=== PATIENT | male | born 1955 | race American Indian/Alaskan Native ===

== ENCOUNTER 2017-01-22 18:39 | Emergency (ER) | payer OTHER ==
[2017-01-22 18:55] VITALS: BP 150/83
[2017-01-22 19:39] LABS: Basophils % (Auto) 1.5 % (0.0-1.8); Eosinophils % (Auto) 5.9 % (0.0-4.3); Hemoglobin 7.7 gm/dl (11.8-15.2); Mean Corpuscular HGB Conc 31 % (32-34); Mean Corpuscular Hemoglobin 25 pg (28-32); Mean Corpuscular Volume 80 fl (84-94); Platelet Count 263 K/mm3 (140-440); Red Blood Count 3.13 M/mm3 (3.65-5.03); Red Cell Distribution Width 17.2 % (13.2-15.2); White Blood Count 7.4 K/mm3 (4.5-11.0)
[2017-01-22 19:47] LABS: Albumin 3.3 g/dL (3.9-5); Albumin/Globulin Ratio 0.7 %; BUN/Creatinine Ratio 5.6; Bilirubin,Total 0.4 mg/dL (0.1-1.2); Calcium 8.4 mg/dL (8.4-10.2); Chloride 99.7 mmol/L (98-107); Potassium 4.5 mmol/L (3.6-5.0); Total Protein 7.9 g/dL (6.3-8.2)
[2017-01-22 20:28] LABS: Bilirubin,Urine NEG (Negative); Blood,Urine NEG (Negative); Ketones,Urine NEG (Negative); Leukocyte Esterase,Urine NEG (Negative); Mucus,Urine FEW /HPF; Nitrite,Urine NEG (Negative); Urobilinogen,Urine < 2.0 mg/dL (<2.0); WBC,Urine < 1.0 /HPF (0.0-6.0)
[2017-01-22 20:30] LABS: Protein,Urine >500 mg/dL (Negative)
--- NOTE | 2017-01-24 15:18 | ED Elopement Review ---
ED Pt Elopement review - Results review Lab results: Laboratory Tests 01/22/17 01/22/17 01/22/17 19:07 19:07 Unknown WBC 7.4 RBC 3.13 L Hgb 7.7 L Hct 25.0 L MCV 80 L MCH 25 L MCHC 31 L RDW 17.2 H Plt Count 263 Lymph % (Auto) 11.3 L [place] % (Auto) 6.6 Eos % (Auto) 5.9 H Baso % (Auto) 1.5 Lymph # 0.8 L [place] # 0.5 Eos # 0.4 Baso # 0.1 Seg Neutrophils % 74.7 H Seg Neutrophils # 5.5 Sodium 140 Potassium 4.5 Chloride 99.7 Carbon Dioxide 26 Anion Gap 19 BUN 14 Creatinine 2.5 H Estimated GFR 32 BUN/Creatinine Ratio 5.60 Glucose 176 H Calcium 8.4 Total Bilirubin 0.4 AST 24 ALT 20 Alkaline Phosphatase 184 H Total Protein 7.9 Albumin 3.3 L Albumin/Globulin Ratio 0.7 Lipase 66 H Urine Color Yellow Urine Turbidity Clear Urine pH 9.0 H Ur Specific [place] 1.012 Urine Protein >500 Urine Glucose (UA) 50 Urine Ketones Neg Urine Blood Neg Urine Nitrite Neg Urine Bilirubin Neg Urine Urobilinogen < 2.0 Ur Leukocyte Esterase Neg Urine WBC (Auto) < 1.0 Urine RBC (Auto) 8.0 U Epithel Cells (Auto) < 1.0 Urine Mucus Few - Call Back decision Pt Call Back Decision: No action required
== END 2017-01-23 01:00 | disposition left against medical advice (07) ==
LOC: ED 18:39
DX: R10.9 Unspecified abdominal pain (principal); M54.9 Dorsalgia, unspecified; I50.9 Heart failure, unspecified; E11.9 Type 2 diabetes mellitus without complications; I10 Essential (primary) hypertension; D64.9 Anemia, unspecified; F17.200 Nicotine dependence, unspecified, uncomplicated; Z88.0 Allergy status to penicillin
CPT/HCPCS: 36415; 80053; 81001; 83690; 85025

== ENCOUNTER 2017-01-23 18:50 | Emergency (ER) | payer OTHER ==
[2017-01-23 20:08] VITALS: BP 172/107
[2017-01-23] MEDS ORDERED: ZOFRAN ODT PO ONE (20:52)
[2017-01-23] MEDS ORDERED: VALIUM IM ONE (20:52)
[2017-01-23] MEDS ORDERED: MORPHINE IM ONE (20:52)
--- NOTE | 2017-01-23 21:29 | Emergency Department Report ---
HPI - General Chief Complaint: Chest Pain Time Seen by Provider: 01/23/17 19:53 - HPI HPI: The patient is a 61-year-old male presents for evaluation of chest pain. The patient reports 1 day of right-sided chest pain, 10/10 in severity, sharp in quality, exacerbated with movement of the upper chest wall or right arm, concentrating as site of dialysis catheter placement to chest wall. The patient denies fever, trauma to the chest wall, dyspnea, cough, hemoptysis, palpitations , dizziness, syncope, unilateral leg swelling, calf muscle pain. Patient also denies cocaine or other stimulant use. ED Past Medical Hx - Past Medical History Previous Medical History?: Yes Hx Hypertension: Yes Hx Congestive Heart Failure: Yes Hx Diabetes: Yes Hx Deep Vein Thrombosis: Yes Hx Renal Disease: (CKD) Hx Seizures: No Hx Asthma: No Hx COPD: No Hx HIV: No Additional medical history: osteomyelitis, ANEMIA. Diabetic Neuropathy.Renal failure, Dialysis . - Surgical History Past Surgical History?: Yes Hx Cholecystectomy: Yes Additional Surgical History: R-BKA- nov 2015. Port for dialysis implanted in left chest 1 month back - Social History Smoking Status: Current Every Day Smoker Substance Use Type: None - Medications Home Medications: Home Medications Medication Instructions Recorded Confirmed Last Taken Type glipiZIDE [Glucotrol] 5 mg PO QDAY #30 tablet 08/31/16 12/23/16 Unknown Rx Insulin Glulisine [Apidra] 0 units SUB-Q ACHS units 10/19/16 12/23/16 Unknown Rx Aspirin [Aspirin BABY CHEW TAB] 81 mg PO QDAY #30 tab.chew 01/02/17 Unknown Rx Carvedilol [Coreg] 25 mg PO BID #60 tablet 01/02/17 Unknown Rx Epoetin Eddie 10,000 Unit [Procrit] 10,000 unit IV YAEL PRN #30 vial 01/02/17 Unknown Rx Furosemide [Lasix TAB] 40 mg PO 0600,1800 #60 tablet 01/02/17 Unknown Rx Gabapentin [Neurontin] 100 mg PO Q8HR #30 capsule 01/02/17 Unknown Rx amLODIPine [Norvasc] 10 mg PO QDAY #30 tablet 01/02/17 Unknown Rx cloNIDine [Catapres] 0.1 mg PO BID #60 tablet 01/02/17 Unknown Rx cloNIDine [Catapres] 0.2 mg PO BID #60 tablet 01/02/17 Unknown Rx hydrALAZINE [Apresoline TAB] 50 mg PO Q8HR #90 tablet 01/02/17 01/23/17 Unknown Rx oxyCODONE /ACETAMINOPHEN [Percocet 2 tab PO Q4H PRN #20 tablet 01/02/17 Unknown Rx 5/325 mg] HYDROcodone/APAP 7.5-325 [[place] 1 each PO Q8HR PRN #10 tablet 01/23/17 Unknown Rx 7.5-325 mg TAB] ED Review of Systems ROS: Stated complaint: CHEST PAIN Other details as noted in HPI Constitutional: denies: fever ENT: denies: throat or neck pain Respiratory: denies: cough, shortness of breath Cardiovascular: reports chest pain Endocrine: denies unexplained weight loss or gain Gastrointestinal: denies: abdominal pain, nausea Genitourinary: denies: dysuria Musculoskeletal: denies: leg swelling Skin: denies: rash Neurological: denies: headache Hematological/Lymphatic: denies: easy bleeding or easy bruising Psych: denies sadness or hopelessness Physical Exam - Physical Exam Vital Signs: Vital Signs 01/23/17 01/23/17 01/23/17 19:29 19:30 19:39 Temperature 99.5 F Pulse Rate 109 H 110 H 111 H Respiratory 13 14 Rate Blood Pressure 159/97 159/97 Blood Pressure [Right] O2 Sat by Pulse 99 97 98 Oximetry 01/23/17 01/23/17 01/23/17 19:41 19:51 19:52 Temperature 99.5 F Pulse Rate 111 H 112 H 111 H Respiratory 21 16 13 Rate Blood Pressure 159/97 157/102 Blood Pressure 159/97 [Right] O2 Sat by Pulse 99 100 98 Oximetry 01/23/17 01/23/17 20:00 20:02 Temperature Pulse Rate 113 H Respiratory 15 13 Rate Blood Pressure 172/107 Blood Pressure [Right] O2 Sat by Pulse 99 98 Oximetry Physical Exam: General: well-nourished, well-developed, no acute distress Head: Normocephalic, atraumatic Eyes: normal sclera ENT: Mucous membranes are pink and moist Neck: trachea midline, neck supple, No neck stiffness, no cervical adenopathy Respiratory: Breath sounds equal bilaterally, no wheezing, rales, or rhonchi Cardio: S1 and S2 present, no murmurs, rubs, gallops, capillary refill is brisk Abdomen: Normoactive bowel sounds, soft abdomen, no rigidity, no guarding or rebound tenderness Chest WALL/Back: right upper chest wall tenderness to palpation present surrounding dialysis catheter insertion site, no surrounding erythema, warmth, or fluctuance, no crepitus, no purulent discharge or drainage Musc: No pitting edema Skin: No rash Neuro: no facial drooping, normal speech Psych: Normal affect ED Course Vital Signs 01/23/17 01/23/17 01/23/17 19:29 19:30 19:39 Temperature 99.5 F Pulse Rate 109 H 110 H 111 H Respiratory 13 14 Rate Blood Pressure 159/97 159/97 Blood Pressure [Right] O2 Sat by Pulse 99 97 98 Oximetry 01/23/17 01/23/17 01/23/17 19:41 19:51 19:52 Temperature 99.5 F Pulse Rate 111 H 112 H 111 H Respiratory 21 16 13 Rate Blood Pressure 159/97 157/102 Blood Pressure 159/97 [Right] O2 Sat by Pulse 99 100 98 Oximetry 01/23/17 01/23/17 20:00 20:02 Temperature Pulse Rate 113 H Respiratory 15 13 Rate Blood Pressure 172/107 Blood Pressure [Right] O2 Sat by Pulse 99 98 Oximetry ED Medical Decision Making - Medical Decision Making The patient was seen and examined by myself. The patient is placed on a engine monitor and continuous pulse ox. On initial evaluation, the patient was found to be in no distress. Evaluation orders were placed. The patient is given IM morphine for his pain. EKG is unremarkable. X-ray of the chest unremarkable. The patient was reevaluated and reported that their symptoms were markedly improved. The patient is stable for discharge with outpatient follow- up. The patient is given follow-up and return instructions. The patient expressed understanding and agreed with the plan. The patient is discharged in stable condition. Critical care attestation.: If time is entered above; I have spent that time in minutes in the direct care of this critically ill patient, excluding procedure time. ED Disposition Clinical Impression: Acute chest wall pain Disposition: DISCHARGED TO HOME OR SELFCARE Is pt being admited?: No Does the pt Need Aspirin: No Condition: Stable Instructions: Chest Pain (ED) Prescriptions: HYDROcodone/APAP 7.5-325 [[place] 7.5-325 mg TAB] 1 each PO Q8HR PRN #10 tablet PRN Reason: Pain Referrals: PRIMARY CARE, [Primary Care Provider] - 3-5 Days Time of Disposition: 21:13
--- NOTE | 2017-01-24 08:54 | XRay Report ---
AP CHEST : 01/23/17 20:44 CLINICAL: Chest pain. COMPARISON:12/23/16 FINDINGS: Massive cardiomegaly with slight improvement compared to the prior exam. The lung bases have cleared. The lungs are clear except for mild bibasal reticular interstitial opacities. Central vascular congestion. A right Vas-Cath has been inserted and the tip is in the right atrium. The lungs are normally expanded and clear. The bones and soft tissues are unremarkable. IMPRESSION: CHF with improvement since the prior exam. Mild bibasal interstitial pulmonary edema.
== END 2017-01-23 21:13 | disposition home or self-care (01) ==
LOC: ED 18:50
DX: R07.89 Other chest pain (principal); E11.22 Type 2 diabetes mellitus with diabetic chronic kidney disease; I12.9 Hypertensive chronic kidney disease with stage 1 through stage 4 chronic kidney disease, or unspecified chronic kidney disease; N18.9 Chronic kidney disease, unspecified; I82.409 Acute embolism and thrombosis of unspecified deep veins of unspecified lower extremity; Z79.4 Long term (current) use of insulin; I50.9 Heart failure, unspecified; E11.40 Type 2 diabetes mellitus with diabetic neuropathy, unspecified; D64.9 Anemia, unspecified; Z79.82 Long term (current) use of aspirin; F17.200 Nicotine dependence, unspecified, uncomplicated; Z99.2 Dependence on renal dialysis; Z98.890 Other specified postprocedural states
CPT/HCPCS: 71010; 93005; 93010; 96372; 99284; J2270; J3360; Q0162

== ENCOUNTER 2017-08-10 18:08 | Inpatient (IN) | payer MEDICARE ==
[2017-08-10 18:27] LABS: Basophils % (Auto) 1.3 % (0.0-1.8); Eosinophils % (Auto) 0.4 % (0.0-4.3); Mean Corpuscular HGB Conc 31 % (32-34); Mean Corpuscular Volume 75 fl (84-94); Platelet Count 313 K/mm3 (140-440); Red Blood Count 1.21 M/mm3 (3.65-5.03); White Blood Count 6.5 K/mm3 (4.5-11.0)
[2017-08-10 18:34] LABS: Hemoglobin 2.8 gm/dl (11.8-15.2)
[2017-08-10 18:35] LABS: Hematocrit 9.1 % (35.5-45.6); Mean Corpuscular Hemoglobin 23 pg (28-32)
[2017-08-10 18:39] LABS: INR 1.12 (0.87-1.13)
[2017-08-10 18:47] LABS: Albumin 2.5 g/dL (3.9-5); Albumin/Globulin Ratio 0.8 %; BUN/Creatinine Ratio 9.13; Bilirubin,Total 0.3 mg/dL (0.1-1.2); Calcium 7.9 mg/dL (8.4-10.2); Chloride 106.5 mmol/L (98-107); Potassium 4.4 mmol/L (3.6-5.0); Total Protein 5.6 g/dL (6.3-8.2)
[2017-08-10] MEDS ORDERED: NACL 0.9% 500 ML 500 ML IV ONE (19:05)
[2017-08-10] MEDS ORDERED: DDAVP IV ONE ×2 (19:06→20:00)
--- NOTE | 2017-08-10 19:10 | Emergency Department Report ---
ED General Adult HPI - General Chief complaint: Altered Mental Status Stated complaint: STROKE Time Seen by Provider: 08/10/17 18:49 Source: patient, EMS (ems notes not available at time of chart dictation), RN notes reviewed, old records reviewed Mode of arrival: Stretcher Limitations: Physical Limitation - History of Present Illness Initial comments: This is a 62-year-old male, I have evaluated the patient in the past. Patient is brought to the hospital by EMS for altered mental status. Patient has a past medical history of right lower extremity below-knee amputation, anemia, diabetes, renal insufficiency, end-stage renal disease on dialysis. He reports his private mangle tender is Dr. Ata Hauser. Patient reports that he called EMS because he was feeling weak, and really malaise. This has been constant. Has no exacerbating or relieving factors. He does endorse private red blood per rectum. The patient indicates no recent colonoscopy, and he thinks that he does not take any blood thinning medication but he is not certain. As per verbal report from EMS, patient is altered, but for uncertain duration of time, and they do not know onset of symptoms. When I speak to the patient, he is not altered, he denies extremity weakness, extremity numbness, slurred speech, hematemesis, irritative and obstructive urinary symptoms. -: Gradual Consistency: constant Improves with: none Worsens with: none Associated Symptoms: malaise, weakness - Related Data Home Medications Medication Instructions Recorded Confirmed Last Taken Lisinopril 10 mg PO QDAY 04/03/17 08/10/17 07/22/17 Furosemide [Lasix TAB] 40 mg PO BID 07/23/17 08/10/17 07/22/17 Glimepiride [Amaryl] 4 mg PO DAILY 07/23/17 08/10/17 07/22/17 Morphine Sulfate [Morphine Sulfate 15 mg PO Q12H 08/10/17 08/10/17 Unknown ER] Previous Rx's Medication Instructions Recorded Last Taken Type Gabapentin [Neurontin] 300 mg PO Q8HR #90 capsule 04/11/17 07/22/17 Rx amLODIPine [Norvasc] 10 mg PO QDAY #30 tablet 04/11/17 07/22/17 Rx Allergies Allergy/AdvReac Type Severity Reaction Status Date / Time Penicillins Allergy Itching Verified 08/10/17 18:43 heparin AdvReac THINS BLOOD Verified 08/10/17 18:43 ED Review of Systems ROS: Stated complaint: STROKE Other details as noted in HPI Constitutional: malaise Eyes: denies: eye discharge Respiratory: denies: cough Cardiovascular: denies: chest pain Gastrointestinal: hematochezia. denies: nausea Genitourinary: denies: dysuria Skin: denies: lesions Neurological: weakness Psychiatric: as per HPI ED Past Medical Hx - Past Medical History Previous Medical History?: Yes Hx Hypertension: Yes Hx Heart Attack/AMI: No Hx Congestive Heart Failure: No Hx Diabetes: Yes Hx Deep Vein Thrombosis: No Hx Pulmonary Embolism: No Hx Liver Disease: No Hx Renal Disease: Yes Hx Sickle Cell Disease: No Hx Arthritis: No Hx Seizures: No Hx Kidney Stones: No Hx Asthma: No Hx COPD: No Hx Tuberculosis: No Hx HIV: No Additional medical history: osteomyelitis, ANEMIA. Diabetic Neuropathy.Renal failure, Dialysis . - Surgical History Past Surgical History?: Yes Hx Coronary Stent: No Hx Open Heart Surgery: No Hx Pacemaker: No Hx Internal Defibrillator: No Hx Cholecystectomy: No Hx Appendectomy: No Hx Breast Surgery: No Additional Surgical History: R-BKA- nov 2015. Port for dialysis implanted in left chest 1 month back, dialysis port in RT chest - Social History Smoking Status: Current Every Day Smoker Substance Use Type: None - Medications Home Medications: Home Medications Medication Instructions Recorded Confirmed Last Taken Type Lisinopril 10 mg PO QDAY 04/03/17 08/10/17 07/22/17 History Gabapentin [Neurontin] 300 mg PO Q8HR #90 capsule 04/11/17 08/10/17 07/22/17 Rx amLODIPine [Norvasc] 10 mg PO QDAY #30 tablet 04/11/17 08/10/17 07/22/17 Rx Furosemide [Lasix TAB] 40 mg PO BID 07/23/17 08/10/17 07/22/17 History Glimepiride [Amaryl] 4 mg PO DAILY 07/23/17 08/10/17 07/22/17 History Morphine Sulfate [Morphine Sulfate 15 mg PO Q12H 08/10/17 08/10/17 Unknown History ER] ED Physical Exam - General Limitations: Physical Limitation General appearance: alert, in no apparent distress - Head Head exam: Present: atraumatic, normocephalic - Eye Eye exam: Present: normal appearance, EOMI, other (bilateral conjunctiva are pale). Absent: nystagmus - ENT ENT exam: Present: normal exam, normal orophraynx, mucous membranes dry, normal external ear exam - Neck Neck exam: Present: normal inspection - Respiratory Respiratory exam: Present: normal lung sounds bilaterally, other (there is a right-sided dialysis access catheter, with no redness, pus or streaking). Absent: respiratory distress, wheezes, rales, rhonchi, stridor, chest wall tenderness - Cardiovascular Cardiovascular Exam: Present: regular rate, normal rhythm, normal heart sounds. Absent: bradycardia, tachycardia, irregular rhythm, systolic murmur, diastolic murmur, rubs, gallop - GI/Abdominal GI/Abdominal exam: Present: soft, normal bowel sounds. Absent: distended, tenderness, guarding, rebound, rigid, pulsatile mass - Rectal Rectal exam: Present: normal inspection, heme (+) stool, bloody stool, other ( bloody stool, strongly guaiac positive) - Extremities Exam Extremities exam: Present: normal inspection, pedal edema, other (right lower extremity status post below-knee MB dictation) - Back Exam Back exam: Present: normal inspection, full ROM. Absent: paraspinal tenderness - Neurological Exam Neurological exam: Present: alert, oriented X3, other (Extraocular movements intact. Tongue midline. No facial droop. Facial sensation intact to light touch in the V1, V2, V3 distribution bilaterally. 5 and 5 strength in 4 extremities.. Sensation is intact to light touch in 4 extremities.). Absent: motor sensory deficit - Psychiatric Psychiatric exam: Present: normal affect, normal mood - Skin Skin exam: Present: warm, dry, intact, normal color. Absent: rash ED Course Vital Signs 08/10/17 08/10/17 08/10/17 18:30 18:44 20:13 Temperature 99.4 F 99.1 F Pulse Rate 98 H 105 H Respiratory 14 14 20 Rate Blood Pressure 139/54 Blood Pressure 129/63 [Right] O2 Sat by Pulse 100 100 100 Oximetry 08/10/17 08/10/17 08/10/17 21:48 22:03 22:06 Temperature 99.3 F 99.3 F 99.3 F Pulse Rate 110 H 111 H 112 H Respiratory 20 20 20 Rate Blood Pressure 130/65 155/70 156/73 Blood Pressure [Right] O2 Sat by Pulse 100 99 100 Oximetry 08/10/17 08/10/17 22:20 22:50 Temperature 99.3 F 99.3 F Pulse Rate 108 H 112 H Respiratory 20 20 Rate Blood Pressure 144/62 149/69 Blood Pressure [Right] O2 Sat by Pulse 99 100 Oximetry - Reevaluation(s) Reevaluation #1: 08/10/17 20:58 As per discussion with blood bank, washed red blood cells will not be available until Saturday. Given current physical exam findings I believe the patient emergently requires packed red blood cell transfusion. This is very discussed with his mangle tender, Dr. Hauser, who is agreeable to the red blood cells that are available at this facility, patient can be dialyzed tomorrow. - Consultations Consultation #1: 08/10/17 19:36 Case is discussed with gastroenterology, Dr. Osborne, he agrees with plan of care , and will see the patient in consultation. Consultation #2: 08/10/17 19:48 Case discussed with critical care physician, Dr. Giraldo, he agrees with placement into the intensive care unit. Consultation #3: 08/10/17 19:58 case d/w Dr Hauser, he agrees with plan called blood bank to request washed rbc as per Dr Del Rio recommendation ED Medical Decision Making - Lab Data Result diagrams: 08/10/17 18:13 08/10/17 18:13 Vital Signs (72 hours) 08/10/17 08/10/17 18:30 18:44 Temperature 99.4 F Pulse Rate 98 H Respiratory 14 14 Rate Blood Pressure 139/54 O2 Sat by Pulse 100 100 Oximetry Laboratory Last Values WBC 6.5 K/mm3 (4.5-11.0) 08/10/17 18:13 RBC 1.21 M/mm3 (3.65-5.03) L 08/10/17 18:13 Hgb 2.8 gm/dl (11.8-15.2) L* 08/10/17 18:13 Hct 9.1 % (35.5-45.6) L* 08/10/17 18:13 MCV 75 fl (84-94) L 08/10/17 18:13 MCH 23 pg (28-32) L 08/10/17 18:13 MCHC 31 % (32-34) L 08/10/17 18:13 RDW 19.0 % (13.2-15.2) H 08/10/17 18:13 Plt Count 313 K/mm3 (140-440) 08/10/17 18:13 Lymph % (Auto) 9.6 % (13.4-35.0) L 08/10/17 18:13 [place] % (Auto) 5.2 % (0.0-7.3) 08/10/17 18:13 Eos % (Auto) 0.4 % (0.0-4.3) 08/10/17 18:13 Baso % (Auto) 1.3 % (0.0-1.8) 08/10/17 18:13 Lymph # 0.6 K/mm3 (1.2-5.4) L 08/10/17 18:13 [place] # 0.3 K/mm3 (0.0-0.8) 08/10/17 18:13 Eos # 0.0 K/mm3 (0.0-0.4) 08/10/17 18:13 Baso # 0.1 K/mm3 (0.0-0.1) 08/10/17 18:13 Seg Neutrophils % 83.5 % (40.0-70.0) H 08/10/17 18:13 Seg Neutrophils # 5.5 K/mm3 (1.8-7.7) 08/10/17 18:13 PT 15.0 Sec. (12.2-14.9) H 08/10/17 18:13 INR 1.12 (0.87-1.13) 08/10/17 18:13 Sodium 142 mmol/L (137-145) 08/10/17 18:13 Potassium 4.4 mmol/L (3.6-5.0) 08/10/17 18:13 Chloride 106.5 mmol/L (98-107) 08/10/17 18:13 Carbon Dioxide 25 mmol/L (22-30) 08/10/17 18:13 Anion Gap 15 mmol/L 08/10/17 18:13 BUN 21 mg/dL (9-20) H 08/10/17 18:13 Creatinine 2.3 mg/dL (0.8-1.5) H 09/16/17 18:13 Estimated GFR 29 ml/min 08/10/17 18:13 BUN/Creatinine Ratio 9.13 % 08/10/17 18:13 Glucose 91 mg/dL (75-100) 08/10/17 18:13 Calcium 7.9 mg/dL (8.4-10.2) L 08/10/17 18:13 Total Bilirubin 0.30 mg/dL (0.1-1.2) 08/10/17 18:13 AST 27 units/L (5-40) 08/10/17 18:13 ALT 15 units/L (7-56) 08/10/17 18:13 Alkaline Phosphatase 97 units/L (35-129) 08/10/17 18:13 Total Protein 5.6 g/dL (6.3-8.2) L 08/10/17 18:13 Albumin 2.5 g/dL (3.9-5) L 08/10/17 18:13 Albumin/Globulin Ratio 0.8 % 08/10/17 18:13 - EKG Data -: EKG Interpreted by Me - Radiology Data Radiology results: image reviewed interpreted by me: X-ray the chest demonstrates right-sided dialysis access catheter, left lower lung field is obscured, otherwise unremarkable. - Medical Decision Making Differential diagnosis: Symptomatic anemia, pneumonia, urinary tract infection, chronic renal insufficiency, electrolyte derangements, GI bleed Assessment and plan: 62-year-old male with complaint of generalized weakness and bright red blood per rectum. He is afebrile, has tachycardia but is hemodynamically stable, has gross blood from rectal examination, and is markedly anemic. He denies being on systemic anticoagulation, we will start the patient on desmopressin, packed red blood cell transfusion, and discussed with gastroenterology, nephrology, critical care. Patient will require triaged to the intensive care unit. On my examination, the patient is alert and oriented 3, has an NIH score of 0, and is clinically sober, his history and physical did not appear to be consistent with stroke, the patient does not require workup for stroke given his obvious GI bleed and anemia at this time. Highly doubt occult sepsis given symptomatic anemia, therefore blood cultures have been canceled, urinalysis is pending, case is presented to the Hospital physician, Dr. Cosme, who accepts the patient to his service. Critical Care Time: Yes Critical care time in (mins) excluding proc time.: 60 Critical care attestation.: If time is entered above; I have spent that time in minutes in the direct care of this critically ill patient, excluding procedure time. ED Disposition Clinical Impression: GI bleed, Anemia, ESRD (end stage renal disease) on dialysis Disposition: OP ADMIT IP TO THIS HOSP Is pt being admited?: Yes Condition: Critical Referrals: PRIMARY CARE, [Primary Care Provider] - 3-5 Days
--- NOTE | 2017-08-10 19:44 | XRay Report ---
FINAL REPORT PROCEDURE: XR CHEST 1V AP TECHNIQUE: Chest radiograph anteroposterior view. CPT 71825 HISTORY: possible Sepsis COMPARISON: Chest x-ray dated August 07, 2016 FINDINGS: Mild linear atelectasis is seen in the lingula. Dual-lumen catheter terminates the region the right atrium of the heart. Left CP angle is not well seen which could be due to prominent fat pad and positioning but a small left pleural effusion is not excluded. No pneumothorax is seen. Likely mild hypoventilatory changes are seen at the right lung base, similar to prior study. IMPRESSION: Left CP angle is not well seen, a changed appearance since prior study. This could be projectional and due to atelectasis prominent fat pad. However, small left pleural effusion is not excluded.
[2017-08-10] MEDS ORDERED: NACL 0.9% IV ONE (20:00)
--- NOTE | 2017-08-10 20:29 | History and Physical Report ---
History of Present Illness History of present illness: 62 YO Male with HTN, DM, Nicotine Dependence, Chronic Pain, Systolic CHF(EF 20%) , Pulmonary HTN, PVD, Tricuspid Regurgitation, Malnutrition, ESRD on HD, presents to ED for evaluation. Pt states that I have been feeling weak, and I have blood in my stool. Pt lethargic and unable to give detailed history, but history taken from medical record and ED staff. No reports of fever, chills, CP , Palpitations, NVD, Syncope, Trauma, Falls, NVD, productive cough, recent ill contacts, skin rashes. Pt seen and evaluated in ED and found to be confused, but is able to protect his airway. Pt found to have a hgb of 2.8. Past History Past Medical History: diabetes, ESRD, heart failure, hypertension, PVD, other ( pulmonary hypertension) Past Surgical History: cholecystectomy, Other Social history: single Family history: hypertension Medications and Allergies Allergies Allergy/AdvReac Type Severity Reaction Status Date / Time Penicillins Allergy Itching Verified 08/10/17 18:43 heparin AdvReac THINS BLOOD Verified 08/10/17 18:43 Home Medications Medication Instructions Recorded Confirmed Last Taken Type Lisinopril 10 mg PO QDAY 04/03/17 08/10/17 07/22/17 History Gabapentin [Neurontin] 300 mg PO Q8HR #90 capsule 04/11/17 08/10/17 07/22/17 Rx amLODIPine [Norvasc] 10 mg PO QDAY #30 tablet 04/11/17 08/10/17 07/22/17 Rx Furosemide [Lasix TAB] 40 mg PO BID 07/23/17 08/10/17 07/22/17 History Glimepiride [Amaryl] 4 mg PO DAILY 07/23/17 08/10/17 07/22/17 History Morphine Sulfate [Morphine Sulfate 15 mg PO Q12H 08/10/17 08/10/17 Unknown History ER] Active Meds: Active Medications Desmopressin Acetate 23.1 mcg/ (Sodium Chloride) 55.775 mls @ 111.55 mls/hr IV ONCE.ED ONE Stop: 08/10/17 20:29 Last Admin: 08/10/17 20:03 Dose: 111.55 mls/hr Review of Systems ROS unobtainable: due to mental status Exam - Constitutional Vitals: Temp Pulse Resp BP Pulse Ox 99.1 F 105 H 20 129/63 100 08/10/17 20:13 08/10/17 20:13 08/10/17 20:13 08/10/17 20:13 08/10/17 20:13 General appearance: Present: severe distress - EENT Eyes: Present: PERRL (conjunctival pallor) ENT: hearing intact, clear oral mucosa - Neck Neck: Present: supple, normal ROM - Respiratory Respiratory effort: labored Respiratory: bilateral: diminished - Cardiovascular Rhythm: other (tachycardic) - Extremities Extremity abnormal: cyanosis, pulses diminished Peripheral Pulses: abnormal - Abdominal General gastrointestinal: Present: soft, non-tender, non-distended, normal bowel sounds Male genitourinary: Present: normal - Integumentary Integumentary: Present: clear, dry - Musculoskeletal Musculoskeletal: generalized weakness - Psychiatric Psychiatric: no intact judgment & insight, no memory intact - Neurologic Neurologic: CNII-XII intact, no gait normal Results - Labs CBC & Chem 7: 08/10/17 18:13 08/10/17 18:13 Labs: Abnormal lab results 08/10/17 08/10/17 08/10/17 Range/Units 18:13 18:13 18:13 RBC 1.21 L (3.65-5.03) M/mm3 Hgb 2.8 L* (11.8-15.2) gm/dl Hct 9.1 L* (35.5-45.6) % MCV 75 L (84-94) fl MCH 23 L (28-32) pg MCHC 31 L (32-34) % RDW 19.0 H (13.2-15.2) % Lymph % (Auto) 9.6 L (13.4-35.0) % Lymph # 0.6 L (1.2-5.4) K/mm3 Seg Neutrophils % 83.5 H (40.0-70.0) % PT 15.0 H (12.2-14.9) Sec. BUN 21 H (9-20) mg/dL Creatinine 2.3 H (0.8-1.5) mg/dL Calcium 7.9 L (8.4-10.2) mg/dL Total Protein 5.6 L (6.3-8.2) g/dL Albumin 2.5 L (3.9-5) g/dL Assessment and Plan - Patient Problems (1) GI bleed Current Visit: Yes Status: Acute Qualifiers: GI bleed type/associated pathology: G Gastritis type: G Plan to address problem: PRBC Transfusion, Admit to ICU, GI consulted, PPI therapy, serial cbc The high probability of a clinically significant, sudden or life threatening deterioration of the [cardiac, renal, pulmonary] system(s) required my full and direct attention, intervention and personal management. The aggregate critical care time was [65] minutes. This time is in addition to time spent performing reported procedures but includes the following: [x] Data Review and interpretation [x] Patient assessment and monitoring of vital signs [x] Documentation [x] Medication orders and management (2) Encephalopathy Current Visit: Yes Status: Acute Plan to address problem: Supportive care, neuro checks, (3) ESRD (end stage renal disease) on dialysis Current Visit: Yes Status: Acute Plan to address problem: Nephrology consulted, dialysis as per renal team. (4) Acute blood loss anemia Current Visit: No Status: Acute Plan to address problem: PRBC transfusion, repeat cbc, GI consulted, endoscopy as per GI (5) Acute renal failure (ARF) Current Visit: No Status: Acute Qualifiers: Acute renal failure type: A Plan to address problem: IVF, monitor uop q shift, nephrology consulted. (6) HTN (hypertension) Current Visit: No Status: Chronic Qualifiers: Hypertension type: H Plan to address problem: monitor BP q shift, supportive care, (7) DVT prophylaxis Current Visit: Yes Status: Acute
--- NOTE | 2017-08-10 20:49 | XRay Report ---
FINAL REPORT PROCEDURE: XR CHEST 1V AP TECHNIQUE: Chest radiograph anteroposterior view. CPT 60729 HISTORY: ams weakness COMPARISON: Chest x-ray dated August 10, 2017 FINDINGS: Probable small left pleural effusion is seen. No focal infiltrate is seen in the left lung base. Linear atelectasis is seen in the lingula. Dual-lumen catheter appears unchanged. Possible cardiomegaly persists. IMPRESSION: Small left pleural effusion is suspected.
--- NOTE | 2017-08-10 22:09 | Consultation ---
Medications and Allergies Allergies Allergy/AdvReac Type Severity Reaction Status Date / Time Penicillins Allergy Itching Verified 08/10/17 18:43 heparin AdvReac THINS BLOOD Verified 08/10/17 18:43 Home Medications Medication Instructions Recorded Confirmed Last Taken Type Lisinopril 10 mg PO QDAY 04/03/17 08/10/17 07/22/17 History Gabapentin [Neurontin] 300 mg PO Q8HR #90 capsule 04/11/17 08/10/17 07/22/17 Rx amLODIPine [Norvasc] 10 mg PO QDAY #30 tablet 04/11/17 08/10/17 07/22/17 Rx Furosemide [Lasix TAB] 40 mg PO BID 07/23/17 08/10/17 07/22/17 History Glimepiride [Amaryl] 4 mg PO DAILY 07/23/17 08/10/17 07/22/17 History Morphine Sulfate [Morphine Sulfate 15 mg PO Q12H 08/10/17 08/10/17 Unknown History ER] Exam - Vital Signs Vital signs: Vital Signs Temp Pulse Resp BP Pulse Ox 99.4 F 98 H 14 139/54 100 08/10/17 18:30 08/10/17 18:30 08/10/17 18:30 08/10/17 18:30 08/10/17 18:30 Results - Lab Results 08/10/17 18:13 08/10/17 18:13 Most recent lab results Calcium 7.9 mg/dL (8.4-10.2) L 08/10/17 18:13
[2017-08-11 01:08] LABS: Bilirubin,Urine NEG (Negative); Blood,Urine NEG (Negative); Ketones,Urine NEG (Negative); Leukocyte Esterase,Urine NEG (Negative); Mucus,Urine FEW /HPF; Nitrite,Urine NEG (Negative); Urobilinogen,Urine < 2.0 mg/dL (<2.0); WBC,Urine < 1.0 /HPF (0.0-6.0)
[2017-08-11] MEDS ORDERED: MORPHINE PO ONE (04:37)
[2017-08-11] MEDS ORDERED: MORPHINE IV ONE (04:42)
[2017-08-11 08:22] LABS: BUN/Creatinine Ratio 9.65; Calcium 7.4 mg/dL (8.4-10.2); Chloride 108.4 mmol/L (98-107); Potassium 5.1 mmol/L (3.6-5.0)
[2017-08-11 08:29] LABS: INR 1.18 (0.87-1.13)
--- NOTE | 2017-08-11 09:34 | Consultation ---
History of Present Illness - History of Present Illness Thank you for the consultation Please see the dictated report for further details Assessment and plan End-stage renal disease currently on maintenance hemodialysis at the [facility] Patient currently dialyzes twice a week No acute or emergent indication for renal replacement therapy Admitted with GI bleed and severe anemia symptomatic Needing GI evaluation/has also seen hematology Dr. Zeng History of high grade proteinuria resulting in fluid retention and congestive heart failure needing dialysis Patient has very poor understanding of his overall health and why he needs dialysis Ideally he needs dialysis 3 times a week to control her volume and solute clearance Discussed with Dr. Niles Osborne today for further GI workup Would not give lisinopril at this time and follow May need hemodialysis tomorrow morning for volume to assess depending on how any packed red blood cells today Past History Past Medical History: diabetes, ESRD, heart failure, hypertension, PVD, other ( pulmonary hypertension) Past Surgical History: cholecystectomy, Other Social history: single Family history: hypertension Medications and Allergies Allergies Allergy/AdvReac Type Severity Reaction Status Date / Time Penicillins Allergy Itching Verified 08/10/17 18:43 heparin AdvReac THINS BLOOD Verified 08/10/17 18:43 Home Medications Medication Instructions Recorded Confirmed Last Taken Type Lisinopril 10 mg PO QDAY 04/03/17 08/10/17 07/22/17 History Gabapentin [Neurontin] 300 mg PO Q8HR #90 capsule 04/11/17 08/10/17 07/22/17 Rx amLODIPine [Norvasc] 10 mg PO QDAY #30 tablet 04/11/17 08/10/17 07/22/17 Rx Furosemide [Lasix TAB] 40 mg PO BID 07/23/17 08/10/17 07/22/17 History Glimepiride [Amaryl] 4 mg PO DAILY 07/23/17 08/10/17 07/22/17 History Morphine Sulfate [Morphine Sulfate 15 mg PO Q12H 08/10/17 08/10/17 Unknown History ER] Exam - Vital Signs Vital signs: Vital Signs Temp Pulse Resp BP Pulse Ox 99.4 F 98 H 14 139/54 100 08/10/17 18:30 08/10/17 18:30 08/10/17 18:30 08/10/17 18:30 08/10/17 18:30 Results - Lab Results 08/11/17 10:47 08/11/17 07:35 Most recent lab results Calcium 7.4 mg/dL (8.4-10.2) L 08/11/17 07:35
[2017-08-11] MEDS ORDERED: MORPHINE ONE (11:03)
[2017-08-11] MEDS: MORPHINE IV PRN ×4 (11:06→23:35)
[2017-08-11 11:15] LABS: Mean Corpuscular HGB Conc 32 % (32-34); Mean Corpuscular Volume 81 fl (84-94); Platelet Count 238 K/mm3 (140-440); Red Blood Count 1.67 M/mm3 (3.65-5.03); Red Cell Distribution Width 18.6 % (13.2-15.2); White Blood Count 6.8 K/mm3 (4.5-11.0)
[2017-08-11 11:28] LABS: Mean Corpuscular Hemoglobin 26 pg (28-32)
[2017-08-11 11:29] LABS: Hematocrit 13.5 % (35.5-45.6); Hemoglobin 4.3 gm/dl (11.8-15.2)
--- NOTE | 2017-08-11 11:49 | Consultation ---
History of Present Illness - Reason for Consult Consult date: 08/11/17 GI bleed Requesting physician: ALETHEA JASSO - History of Present Illness 62 y/o male, last admitted to the ICU the end of June with the same complaint. GI bleed. It does not appear that he was scoped on the last admission as he was discharged the day the scope was to happen. Patient presents with BRBPR but has a known history of internal hemorrhoids. He has been scoped in the past and found no active bleeding. He is awake alert and oriented. Hemodynamically stable. Had HD yesterday at his outpatient facility. Past History Past Medical History: diabetes, ESRD, heart failure, hypertension, PVD, other ( pulmonary hypertension) Past Surgical History: cholecystectomy, Other Social history: single Family history: hypertension Medications and Allergies Allergies Allergy/AdvReac Type Severity Reaction Status Date / Time Penicillins Allergy Itching Verified 08/10/17 18:43 heparin AdvReac THINS BLOOD Verified 08/10/17 18:43 Home Medications Medication Instructions Recorded Confirmed Last Taken Type Lisinopril 10 mg PO QDAY 04/03/17 08/10/17 07/22/17 History Gabapentin [Neurontin] 300 mg PO Q8HR #90 capsule 04/11/17 08/10/17 07/22/17 Rx amLODIPine [Norvasc] 10 mg PO QDAY #30 tablet 04/11/17 08/10/17 07/22/17 Rx Furosemide [Lasix TAB] 40 mg PO BID 07/23/17 08/10/17 07/22/17 History Glimepiride [Amaryl] 4 mg PO DAILY 07/23/17 08/10/17 07/22/17 History Morphine Sulfate [Morphine Sulfate 15 mg PO Q12H 08/10/17 08/10/17 Unknown History ER] Active Meds: Active Medications Morphine Sulfate (Morphine) 2 mg IV Q4H PRN PRN Reason: Pain, Moderate (4-6) Last Admin: 08/11/17 11:06 Dose: 2 mg Review of Systems All systems: negative Constitutional: other (back pain, chronic in nature, per patient takes morphine) Exam - Constitutional Vitals: Temp Pulse Resp BP Pulse Ox 99.3 F 90 98 H 158/90 98 08/11/17 02:00 08/11/17 11:36 08/11/17 11:36 08/11/17 11:36 08/11/17 11:01 General appearance: Present: no acute distress, well-nourished - EENT Eyes: Present: PERRL, EOM intact ENT: hearing intact, clear oral mucosa, dentition normal - Neck Neck: Present: supple, normal ROM - Respiratory Respiratory effort: normal Respiratory: bilateral: CTA - Cardiovascular Rhythm: regular (sinus tach) - Extremities Extremities: no ischemia - Abdominal General gastrointestinal: Present: soft, non-tender Male genitourinary: Present: deferred - Rectal Rectal Exam: deferred Results - Labs CBC & Chem 7: 08/11/17 10:47 08/11/17 07:35 Labs: Abnormal lab results 08/11/17 08/11/17 08/11/17 Range/Units 07:35 07:35 10:47 RBC 1.67 L (3.65-5.03) M/mm3 Hgb 4.3 L* (11.8-15.2) gm/dl Hct 13.5 L* (35.5-45.6) % MCV 81 L (84-94) fl MCH 26 L (28-32) pg RDW 18.6 H (13.2-15.2) % PT 15.6 H (12.2-14.9) Sec. INR 1.18 H (0.87-1.13) APTT 23.0 L (24.2-36.6) Sec. Potassium 5.1 H (3.6-5.0) mmol/L Chloride 108.4 H (98-107) mmol/L BUN 28 H (9-20) mg/dL Creatinine 2.9 H (0.8-1.5) mg/dL Calcium 7.4 L (8.4-10.2) mg/dL Assessment and Plan 62 y/o male with recurrent GI bleed, source unknown with known internal hemorrhoids. 1. Same symptoms as prior admission and hemodynamically patient is stable. If GI is not planning to scope today will likely transfer out. Patient has had many transfusions in the past and has antibodies so blood is not available until Saturday per ED note. 2. Renal consulted. Had HD yesterday. Next date per his schedule is 3. Back pain per primary team.
--- NOTE | 2017-08-11 12:57 | Progress Note ---
Assessment and Plan Assessment and plan: Patient is 62 yo man with a history of tobacco dependency, chronic pain syndrome on narcotics daily, CHF with EF 15-20% on 09/2016 Echo, severe pulmonary hypertension, severe TR, DVT, PVD with right bka, htn, hep. c, type 2 dm, discitis, aocd, severe protein calorie malnutrition, albumin 2.3, pcn allergy and chronic elevated troponin who presents with altered mental status, fatigue. Positive blood in the stools. He was last admitted to the ICU the end of June with the same complaint. GI bleed. It does not appear that he was scoped on the last admission as he was discharged the day the scope was to happen. Patient presents with BRBPR but has a known history of internal hemorrhoids. He has been scoped in the past and found no active bleeding. He is awake alert and oriented. Hemodynamically stable. Had HD yesterday at his outpatient facility.62 y/o male with recurrent GI bleed, source unknown with known internal hemorrhoids. -Acute on chronic blood loss anemia: Discussed with GI, EGD and colonoscopy in a.m. -End Stage renal disease on hemodialysis: nephrology to follow -Chronic pain syndrome: Treated with IV morphine -Tobacco dependency: counseled on stopping EGD, Colonoscopy am, discussed with endoscopy support specialist Discussed with infertility nurse okay to downgrade from the ICU History Interval history: Patient was seen and examined. Follow-up on current diagnosis/anemia. Overnight uneventful. Patient denies any chest pain, shortness breath, nausea/ vomiting or severe headaches. Imaging, nursing note, chart, labs and old chart reviewed. Discussed with patient. Hospitalist Physical - Physical exam Narrative exam: GEN: thin and frail, NAD, AWAKE, ALERT, ORIENTATED x 3 HEENT: NCAT, EOMI, PERRL, OP Clear NECK: supple, no adenopathy, no thyromegaly, no JVD CVS/HEART: RRR, NORMAL S1S2, NO JVD, pulses present bilaterally CHEST/LUNGS: CTA B, Symmetrical chest expansion, good air entry bilaterally GI/Abdomen: soft, NTND, good bowel sounds, no guarding or rebound /Bladder: no suprapubic tenderness, no CVA or paraspinal tenderness EXT/Skin: no c/c/e, no significant edema or obvious rash MSK: FROM x 4, right bka Neuro: CN 2-12 grossly intact, no new focal deficits Psych: calm - Constitutional Vitals: Temp Pulse Resp BP Pulse Ox 99.3 F 92 H 16 158/90 98 08/11/17 02:00 08/11/17 11:54 08/11/17 11:54 08/11/17 11:36 08/11/17 11:54 General appearance: Present: no acute distress, well-nourished Results - Labs CBC & Chem 7: 08/11/17 10:47 08/11/17 07:35 Labs: Laboratory Last Values WBC 6.8 K/mm3 (4.5-11.0) 08/11/17 10:47 RBC 1.67 M/mm3 (3.65-5.03) L 08/11/17 10:47 Hgb 4.3 gm/dl (11.8-15.2) L* 08/11/17 10:47 Hct 13.5 % (35.5-45.6) L* 08/11/17 10:47 MCV 81 fl (84-94) L 08/11/17 10:47 MCH 26 pg (28-32) L 08/11/17 10:47 MCHC 32 % (32-34) 08/11/17 10:47 RDW 18.6 % (13.2-15.2) H 08/11/17 10:47 Plt Count 238 K/mm3 (140-440) 08/11/17 10:47 Lymph % (Auto) 9.6 % (13.4-35.0) L 08/10/17 18:13 [place] % (Auto) 5.2 % (0.0-7.3) 08/10/17 18:13 Eos % (Auto) 0.4 % (0.0-4.3) 08/10/17 18:13 Baso % (Auto) 1.3 % (0.0-1.8) 08/10/17 18:13 Lymph # 0.6 K/mm3 (1.2-5.4) L 08/10/17 18:13 [place] # 0.3 K/mm3 (0.0-0.8) 08/10/17 18:13 Eos # 0.0 K/mm3 (0.0-0.4) 08/10/17 18:13 Baso # 0.1 K/mm3 (0.0-0.1) 08/10/17 18:13 Seg Neutrophils % 83.5 % (40.0-70.0) H 08/10/17 18:13 Seg Neutrophils # 5.5 K/mm3 (1.8-7.7) 08/10/17 18:13 PT 15.6 Sec. (12.2-14.9) H 08/11/17 07:35 INR 1.18 (0.87-1.13) H 08/11/17 07:35 APTT 23.0 Sec. (24.2-36.6) L 08/11/17 07:35 Sodium 141 mmol/L (137-145) 08/11/17 07:35 Potassium 5.1 mmol/L (3.6-5.0) H 08/11/17 07:35 Chloride 108.4 mmol/L (98-107) H 08/11/17 07:35 Carbon Dioxide 22 mmol/L (22-30) 08/11/17 07:35 Anion Gap 16 mmol/L 08/11/17 07:35 BUN 28 mg/dL (9-20) H 08/11/17 07:35 Creatinine 2.9 mg/dL (0.8-1.5) H 08/11/17 07:35 Estimated GFR 22 ml/min 08/11/17 07:35 BUN/Creatinine Ratio 9.65 % 08/11/17 07:35 Glucose 80 mg/dL (75-100) 08/11/17 07:35 Calcium 7.4 mg/dL (8.4-10.2) L 08/11/17 07:35 Total Bilirubin 0.30 mg/dL (0.1-1.2) 08/10/17 18:13 AST 27 units/L (5-40) 08/10/17 18:13 ALT 15 units/L (7-56) 08/10/17 18:13 Alkaline Phosphatase 97 units/L (35-129) 08/10/17 18:13 Total Protein 5.6 g/dL (6.3-8.2) L 08/10/17 18:13 Albumin 2.5 g/dL (3.9-5) L 08/10/17 18:13 Albumin/Globulin Ratio 0.8 % 08/10/17 18:13 Urine Color Yellow (Yellow) 08/11/17 00:34 Urine Turbidity Clear (Clear) 08/11/17 00:34 Urine pH 7.0 (5.0-7.0) 08/11/17 00:34 Ur Specific [place] 1.011 (1.003-1.030) 08/11/17 00:34 Urine Protein 100 mg/dl mg/dL (Negative) 08/11/17 00:34 Urine Glucose (UA) Neg mg/dL (Negative) 08/11/17 00:34 Urine Ketones Neg mg/dL (Negative) 08/11/17 00:34 Urine Blood Neg (Negative) 08/11/17 00:34 Urine Nitrite Neg (Negative) 08/11/17 00:34 Urine Bilirubin Neg (Negative) 08/11/17 00:34 Urine Urobilinogen < 2.0 mg/dL (<2.0) 08/11/17 00:34 Ur Leukocyte Esterase Neg (Negative) 08/11/17 00:34 Urine WBC (Auto) < 1.0 /HPF (0.0-6.0) 08/11/17 00:34 Urine RBC (Auto) 1.0 /HPF (0.0-6.0) 08/11/17 00:34 U Epithel Cells (Auto) < 1.0 /HPF (0-13.0) 08/11/17 00:34 Hyaline Casts 1 /LPF 08/11/17 00:34 Urine Mucus Few /HPF 08/11/17 00:34 Blood Type B POSITIVE 08/10/17 20:08 Antibody Screen Negative 08/10/17 20:08 Crossmatch See Detail 08/10/17 20:08
[2017-08-11] MEDS ORDERED: NACL 0.9% 500 ML 500 ML IV SCH (14:00)
[2017-08-11] MEDS ORDERED: GOLYTELY PO ONE (18:00)
--- NOTE | 2017-08-12 01:00 | Consultation ---
TIME OF SERVICE: Around 10:50 in the morning. SOURCE OF INFORMATION: From patient himself as well as old records were also reviewed from the system. HISTORY OF PRESENT ILLNESS: The patient is a 62-year-old -[place] male who has a history of end-stage renal disease for which he is currently on maintenance hemodialysis Tuesdays and Saturdays at [facility] through a central venous catheter as the his fistula has not been matured completely yet. The patient did go for dialysis yesterday; however, he also has noticed blood that he has been passing in the stools and was feeling extremely weak, tired and fatigued, and presented to ER with hemoglobin down to 2. The patient did receive packed red blood cell transfusion. He feels better and he is currently being evaluated by Dr. Niles Osborne. The patient has also been followed by Dr. Zeng in an outpatient setting for anemia and elevated ferritin level. The patient denies taking any type of anti-inflammatory drugs. He has history of GI bleed in the past as well. PAST MEDICAL HISTORY: 1. End-stage renal disease. 2. Anemia on end-stage renal disease. 3. Chronic proteinuria high grade. 4. Chronic edema. 5. Congestive heart failure. 6. History of anemia followed by Hematology. CURRENT ALLERGIES: Reviewed. HOME MEDICATIONS AND PRESENT MEDICATIONS: Reviewed. SOCIAL HISTORY: Denies any history of drug or substance abuse. FAMILY HISTORY: Essentially noncontributory for renal-related disorder. REVIEW OF SYSTEMS: Positive for generalized weakness, fatigue, and blood in his stool. Occasional abdominal discomfort in the lower abdomen. No fever or chills. Complete review of the systems is obtained, pertinent positive as mentioned above, other review of systems negative. PHYSICAL EXAMINATION: GENERAL: The patient is a 62-year-old male who is lying comfortably in bed, does not appear in acute distress. Dr. Osborne is also here to see the patient in ER room 1. VITAL SIGNS: Reviewed from this admission. HEENT: Normocephalic, atraumatic skull. Extraocular movements intact. Severe pallor present. NECK: Supple. CHEST: Essentially clear anteriorly and posteriorly, does have a central venous catheter, right upper part of the chest tube. Site is unremarkable. HEART: Regular rate. S1, S2 heard. No S3, S4. ABDOMEN: Soft, nontender. EXTREMITIES: The patient's edema is much better. He currently does have 1+ in the left leg. Right leg is amputated. PSYCHIATRIC: The patient is alert, awake, appropriate. Follows commands. Labs and x-rays reviewed from this admission. ASSESSMENT AND PLAN: 1. End-stage renal disease. There is no acute emergent indication for renal replacement therapy. The patient is currently on Saturday and Saturday hemodialysis. He does have a history of congestive heart failure and high-grade proteinuria, but if he does develope significant edema and get short of breath, in my opinion, should be continued with hemodialysis 2 to 3 times, but the patient refuses to 3 times per week. Currently, his edema is better. 2. Anemia and end-stage renal disease complicated by GI bleed. The patient has also been seen by Dr. Zeng in the past, currently being evaluated by Dr. Niles Osborne with whom I did discuss the case as well. 3. Congestive heart failure, fluid overload is better. The patient is complying better with the fluid at this time. Used to have approximately 2+ edema. 4. The patient does not compliant with treatment recommendation in terms of dialyzing 3 times a week. 5. Gastrointestinal bleed with severe anemia. Post-packed red blood cell transfusion. Monitor hemoglobin closely. Preferably used fresh or washed RBCs to reduce hyperkalemia if possible. Plan of care discussed with the patient. All questions were answered. There is no acute emergent indication for renal replacement therapy today. Monitor potassium level closely. Correct anemia with packed red blood cell transfusion. Gastroenterology services here to evaluate him. Avoid any form of blood thinners. Monitor blood pressure closely. We will continue to follow and make recommendations from renal standpoint. JOB# [id number] AMINA/SHAYAN
--- NOTE | 2017-08-12 01:00 | Consultation ---
INDICATION: 1. Anemia. 2. Possible GI bleed. HISTORY OF PRESENT ILLNESS: The patient is a 62-year-old black male with history of hypertension, diabetes, nicotine dependence, chronic pain and CHF as well as pulmonary hypertension and end-stage renal disease, on dialysis. The patient reports he had been feeling weak and having blood in the stools. He subsequently became lethargic. The patient subsequently came to the Emergency Room. In the Emergency Room, the patient was noted to be severely anemic and subsequently admitted and GI consulted. Denies any hematemesis. Denies any other specific GI problems or complaints. Denies any significant NSAID use. PAST MEDICAL HISTORY: 1. Diabetes. 2. End-stage renal disease, on dialysis. 3. Hypertension. 4. Peripheral vascular disease. 5. Pulmonary hypertension. 6. Status post cholecystectomy. MEDICATIONS: See chart. ALLERGIES: PENICILLIN AND HEPARIN. SOCIAL HISTORY: Denies alcohol. FAMILY HISTORY: Negative for colon cancer. REVIEW OF SYSTEMS: GENERAL: Reports weakness. HEENT: No visual complaints or tinnitus. PULMONARY: No shortness of breath. No cough. No chest pain. GASTROINTESTINAL: Reports dark stool. All points of 13-point review of systems otherwise negative. PHYSICAL EXAMINATION: VITAL SIGNS: Temperature of 98.7, pulse 90, respirations 20, blood pressure 148/70. GENERAL: Fairly nourished male in no acute distress. HEENT: Pupils are equal, round, reactive. PULMONARY: Clear to auscultation bilaterally. CARDIOVASCULAR: Regular rhythm. Normal S1, S2. ABDOMEN: Positive bowel sounds, soft. SKIN: No obvious rashes. LABORATORY DATA: Pertinent for white count 6.5, hemoglobin and hematocrit of 2.8 and 9.1, platelet count of 313. Chem-7 pertinent for BUN and creatinine of 21 and 2.3. Coags within normal limits. LFTs within normal limits. ASSESSMENT AND PLAN: A 62-year-old male with past medical history as noted above who reports some dark and bright red stools and found to be severely anemic. Management as noted below. PLAN: 1. Transfuse per primary team till his hemoglobin over 8. 2. Follow hematocrit. 3. Avoid NSAIDs and aspirin. 4. We will plan for EGD and colonoscopy in a.m. JOB# [id number] CAB/NTS
[2017-08-12] MEDS: MORPHINE IV PRN ×4 (05:08→22:57)
[2017-08-12 06:16] LABS: Hematocrit 20.8 % (35.5-45.6); Hemoglobin 6.7 gm/dl (11.8-15.2); Mean Corpuscular HGB Conc 32 % (32-34); Mean Corpuscular Hemoglobin 27 pg (28-32); Mean Corpuscular Volume 84 fl (84-94); Platelet Count 251 K/mm3 (140-440); Red Blood Count 2.47 M/mm3 (3.65-5.03); Red Cell Distribution Width 17.9 % (13.2-15.2); White Blood Count 8.5 K/mm3 (4.5-11.0)
[2017-08-12 06:40] LABS: BUN/Creatinine Ratio 9.41; Calcium 7.7 mg/dL (8.4-10.2); Chloride 108.1 mmol/L (98-107); Potassium 5.1 mmol/L (3.6-5.0)
--- NOTE | 2017-08-12 08:58 | Progress Note ---
Subjective Interval history: assessment and plan End-stage renal disease; patient does have evidence on borderline potassium and volume overload. He does need dialysis 3 times a week, which she has been refusing in the past Anemia due to blood loss and GI bleed will require colonoscopy tomorrow Fluid overload at least 1+ edema with bilateral crackles Poorly compliant patient interferes with treatment recommendation. Prognosis is going to be poor. I have discussed this with him at length Hypertension. Currently on amlodipine and lisinopril Continue with furosemide for now Will add vitamin Currently, will need dialysis Saturday, Saturday and Saturday, 3.15 hours, targeting 1-2 kg fluid removal Objective - Vital Signs Vital signs: Vital Signs - 12hr 08/11/17 08/12/17 08/12/17 23:35 00:05 00:35 Temperature 98.5 F 98.5 F 98.6 F Pulse Rate 96 H 97 H 97 H Pulse Rate [ Right Radial] Respiratory 18 18 18 Rate Blood Pressure 169/66 165/88 160/79 08/12/17 08/12/17 08/12/17 02:05 02:46 03:35 Temperature 98.6 F 98.6 F Pulse Rate 103 H 96 H Pulse Rate [ 95 H Right Radial] Respiratory 18 18 18 Rate Blood Pressure 163/88 166/70 08/12/17 05:38 Temperature Pulse Rate Pulse Rate [ Right Radial] Respiratory 18 Rate Blood Pressure - Lab 08/12/17 04:42 08/12/17 04:42 Most recent lab results Calcium 7.7 mg/dL (8.4-10.2) L 08/12/17 04:42
--- NOTE | 2017-08-12 09:25 | Gastroenterology Progress Note ---
Assessment and Plan 1.anemia 2.GI bleed 3.hematochezia -HGB 6.7 -s/p 6 units of PRBCs- 1 more unit of PRBCs pending transfusion today -continue to monitor H/H and transfuse as needed -hold blood thinning medications -pt currently hemodynamically stable -no active signs of bleeding overnight or this am -pt with h/o chronic MARY-last EGD/colonoscopy in 2014 -EGD unremarkable and colon revealed internal hemorrhoids -pt has only drank half of colon prep for procedures today-will cancel EGD/ colonoscopy and reschedule for tomorrow -clear liquid diet today, then NPO after MN -will follow Subjective Date of service: 08/12/17 Principal diagnosis: anemia, gi bleed Interval history: Patient resting in bed. Nurse at bedside. No acute distress noted. Pt only drank half of colon prep overnight. Reports no BMs overnight or this am. Objective - Constitutional Vitals: Temp Pulse Resp BP Pulse Ox 98.6 F 96 H 18 166/70 97 08/12/17 03:35 08/12/17 03:35 08/12/17 05:38 08/12/17 03:35 08/11/17 20:28 General appearance: no acute distress - EENT Eyes: PERRL, EOM intact ENT: hearing intact - Neck Neck: supple, normal ROM - Respiratory Respiratory: bilateral: CTA - Cardiovascular Rhythm: regular Heart Sounds: Present: S1 & S2 - Extremities Extremities: No edema - Gastrointestinal General gastrointestinal: Present: soft, non-tender, non-distended, normal bowel sounds - Integumentary Integumentary: Present: warm, dry - Neurologic Neurological: alert and oriented x3 - Labs CBC & Chem 7: 08/12/17 04:42 08/12/17 04:42 Labs: Laboratory Results - last 24 hr 08/11/17 08/12/17 08/12/17 10:47 04:42 04:42 WBC 6.8 8.5 RBC 1.67 L 2.47 L Hgb 4.3 L* 6.7 L Hct 13.5 L* 20.8 L D MCV 81 L 84 MCH 26 L 27 L MCHC 32 32 RDW 18.6 H 17.9 H Plt Count 238 251 Sodium 139 Potassium 5.1 H Chloride 108.1 H Carbon Dioxide 20 L Anion Gap 16 BUN 32 H Creatinine 3.4 H Estimated GFR 19 BUN/Creatinine Ratio 9.41 Glucose 76 Calcium 7.7 L
[2017-08-12] MEDS ORDERED: GOLYTELY PO ONE (10:00)
--- NOTE | 2017-08-12 10:12 | Admit Criteria Form ---
Admission Criteria Documentation: GASTROINTESTINAL BLEEDING, LOWER Clinical Indications for Admission to Inpatient Care ([place]/check or initial the applicable condition/criteria) Admission is indicated for ANY ONE of the following: [X]I. Active gross bleeding per rectum. [ ]II. Failure to control bleeding after colonoscopy [ ]III. Unstable comorbid illness (eg, hepatic, pulmonary,or cardiac) [ ]IV. Coagulopathy(eg, advanced liver disease, irreversible anticoagulation) [ ]V. Suspected or known ischemic colitis(6) [ ]. Previous aortic graft placement or known aortic aneurysm [X ]VII. Inpatient admission required rather than observation care (Also use Gastrointestinal Bleeding,Lower: Observation Care as appropriate) because of 1 or more of the following(7)( 8): [ ]a) Hemodynamic instability [X ]b) Anemia requiring inpatient admission as indicated by ALL of the following: [ ]1) Presence of significant clinical finding indicated by 1 or more of the following: [X ]A. Tachycardia for age [ ]B. Orthostatic vital sign changes [ ]C. Altered mental status [ ]D. Heart failure [ ]E. Chest pain [ ]F. Exertional dyspnea [ ]G. Other findings suggesting inadequate perfusion (e.g., peripheral or myocardial ischemia, end organ dysfunction) [ ]2) Initial (e.g., emergency department, observation care) treatment with transfusion or volume replacement is judged inappropriate (due to severity of the finding ) or has been ineffective [ ]c) Severe pain requiring acute inpatient management [ ]d) Altered mental status that is severe or persistent [ ]e) Absent bowel sounds with complete ileus [ ]f) Signs of intestinal obstruction or peritonitis [A] [ ]g) High-risklow platelet count [ ]h) Severe electrolyte abnormalities requiring inpatient care [ ]i) Acute renal failure [ ]j) High fever or infection requiring inpatient admission as indicated by 1 or more of the following (10)(11): [ ]1) Appropriate outpatient or observation care antimicrobial treatment unavailable, not effective, or not feasible [ ]2) Documented bacteremia [ ]3) Temperature greater than 104.9 degrees F (40.5 degrees C) (oral) [ ]4) Temperature greater than 103.1 degrees F (39.5 degrees C) (oral) or less than 96.8 degrees F (36 degrees C) (rectal) that does not respond to all emergency treatment measures [ ]k) Immediate inpatient surgeryneeded [ ]l) Parenteral nutrition regimen that must be implemented on inpatient basis [ ]m) Other condition, treatment or monitoring requiring inpatient admission Extended stay beyond goal length of stay may be needed for(3)(4)(24): [ ]a) Emergency surgery(25) [ ]b) Coagulation abnormalities(26) [ ]c) Recurrent or persistent bleeding, continued vital sign instability(20)(25) (27)(28) [ ]d) Active comorbidities (eg, renal insufficiency, heart failure, pre- existingliver disease)(22) The original [employer] content created by [employer] has been revised. The portions of the content which have been revised are identified through the use of italic text or in bold, and [facility] has neither reviewed nor approved the modified material. All other unmodified content is copyright [employer]. Please see references footnoted in the original [employer] edition 2017 Admission Criteria Met: Yes
[2017-08-12] MEDS ORDERED: NACL 0.9% 100 ML IV PRN (11:00)
--- NOTE | 2017-08-12 14:28 | Progress Note ---
Assessment and Plan Assessment and plan: Patient is 62 yo man with a history of tobacco dependency, chronic pain syndrome on narcotics daily, CHF with EF 15-20% on 09/2016 Echo, severe pulmonary hypertension, severe TR, DVT, PVD with right bka, htn, hep. c, type 2 dm, discitis, aocd, severe protein calorie malnutrition, albumin 2.3, pcn allergy and chronic elevated troponin who presents with altered mental status, fatigue. Positive blood in the stools. He was last admitted to the ICU the end of June with the same complaint. GI bleed. It does not appear that he was scoped on the last admission as he was discharged the day the scope was to happen. Patient presents with BRBPR but has a known history of internal hemorrhoids. He has been scoped in the past and found no active bleeding. He is awake alert and oriented. Hemodynamically stable. Had HD yesterday at his outpatient facility -Acute on chronic blood loss anemia: Discussed with GI, EGD and colonoscopy today -End Stage renal disease on hemodialysis: nephrology to follow -Chronic pain syndrome: Treated with IV morphine -Tobacco dependency: counseled on stopping EGD, Colonoscopy today, discussed with residential youth counselor Discussed with theater set production designer okay to downgrade from the ICU Patient noncompliant with drinking GoLytely, we discussed in detail. GI considering just doing the EGD because of pt poor prep. Main issue here and last hospitalization is: his lack of adherence to medical advise. History Interval history: Patient was seen and examined. Follow-up on current diagnosis/anemia. Overnight uneventful. Patient denies any chest pain, shortness breath, nausea/ vomiting or severe headaches. Imaging, nursing note, chart, labs and old chart reviewed. Discussed with patient. Hospitalist Physical - Physical exam Narrative exam: GEN: thin and frail, NAD, AWAKE, ALERT, ORIENTATED x 3 HEENT: NCAT, EOMI, PERRL, OP Clear NECK: supple, no adenopathy, no thyromegaly, no JVD CVS/HEART: RRR, NORMAL S1S2, NO JVD, pulses present bilaterally CHEST/LUNGS: CTA B, Symmetrical chest expansion, good air entry bilaterally GI/Abdomen: soft, NTND, good bowel sounds, no guarding or rebound /Bladder: no suprapubic tenderness, no CVA or paraspinal tenderness EXT/Skin: no c/c/e, no significant edema or obvious rash MSK: FROM x 4, right bka Neuro: CN 2-12 grossly intact, no new focal deficits Psych: calm - Constitutional Vitals: Temp Pulse Resp BP Pulse Ox 98.3 F 106 H 18 166/98 97 08/12/17 11:35 08/12/17 12:00 08/12/17 11:35 08/12/17 12:00 08/11/17 20:28 General appearance: Present: no acute distress, well-nourished Results - Labs CBC & Chem 7: 08/12/17 04:42 08/12/17 04:42 Labs: Laboratory Last Values WBC 8.5 K/mm3 (4.5-11.0) 08/12/17 04:42 RBC 2.47 M/mm3 (3.65-5.03) L 08/12/17 04:42 Hgb 6.7 gm/dl (11.8-15.2) L 08/12/17 04:42 Hct 20.8 % (35.5-45.6) L D 08/12/17 04:42 MCV 84 fl (84-94) 08/12/17 04:42 MCH 27 pg (28-32) L 08/12/17 04:42 MCHC 32 % (32-34) 08/12/17 04:42 RDW 17.9 % (13.2-15.2) H 08/12/17 04:42 Plt Count 251 K/mm3 (140-440) 08/12/17 04:42 Lymph % (Auto) 9.6 % (13.4-35.0) L 08/10/17 18:13 [place] % (Auto) 5.2 % (0.0-7.3) 08/10/17 18:13 Eos % (Auto) 0.4 % (0.0-4.3) 08/10/17 18:13 Baso % (Auto) 1.3 % (0.0-1.8) 08/10/17 18:13 Lymph # 0.6 K/mm3 (1.2-5.4) L 08/10/17 18:13 [place] # 0.3 K/mm3 (0.0-0.8) 08/10/17 18:13 Eos # 0.0 K/mm3 (0.0-0.4) 08/10/17 18:13 Baso # 0.1 K/mm3 (0.0-0.1) 08/10/17 18:13 Seg Neutrophils % 83.5 % (40.0-70.0) H 08/10/17 18:13 Seg Neutrophils # 5.5 K/mm3 (1.8-7.7) 08/10/17 18:13 PT 15.6 Sec. (12.2-14.9) H 08/11/17 07:35 INR 1.18 (0.87-1.13) H 08/11/17 07:35 APTT 23.0 Sec. (24.2-36.6) L 08/11/17 07:35 Sodium 139 mmol/L (137-145) 08/12/17 04:42 Potassium 5.1 mmol/L (3.6-5.0) H 08/12/17 04:42 Chloride 108.1 mmol/L (98-107) H 08/12/17 04:42 Carbon Dioxide 20 mmol/L (22-30) L 08/12/17 04:42 Anion Gap 16 mmol/L 08/12/17 04:42 BUN 32 mg/dL (9-20) H 08/12/17 04:42 Creatinine 3.4 mg/dL (0.8-1.5) H 08/12/17 04:42 Estimated GFR 19 ml/min 08/12/17 04:42 BUN/Creatinine Ratio 9.41 % 08/12/17 04:42 Glucose 76 mg/dL (75-100) 08/12/17 04:42 Calcium 7.7 mg/dL (8.4-10.2) L 08/12/17 04:42 Total Bilirubin 0.30 mg/dL (0.1-1.2) 08/10/17 18:13 AST 27 units/L (5-40) 08/10/17 18:13 ALT 15 units/L (7-56) 08/10/17 18:13 Alkaline Phosphatase 97 units/L (35-129) 08/10/17 18:13 Total Protein 5.6 g/dL (6.3-8.2) L 08/10/17 18:13 Albumin 2.5 g/dL (3.9-5) L 08/10/17 18:13 Albumin/Globulin Ratio 0.8 % 08/10/17 18:13 Urine Color Yellow (Yellow) 08/11/17 00:34 Urine Turbidity Clear (Clear) 08/11/17 00:34 Urine pH 7.0 (5.0-7.0) 08/11/17 00:34 Ur Specific [place] 1.011 (1.003-1.030) 08/11/17 00:34 Urine Protein 100 mg/dl mg/dL (Negative) 08/11/17 00:34 Urine Glucose (UA) Neg mg/dL (Negative) 08/11/17 00:34 Urine Ketones Neg mg/dL (Negative) 08/11/17 00:34 Urine Blood Neg (Negative) 08/11/17 00:34 Urine Nitrite Neg (Negative) 08/11/17 00:34 Urine Bilirubin Neg (Negative) 08/11/17 00:34 Urine Urobilinogen < 2.0 mg/dL (<2.0) 08/11/17 00:34 Ur Leukocyte Esterase Neg (Negative) 08/11/17 00:34 Urine WBC (Auto) < 1.0 /HPF (0.0-6.0) 08/11/17 00:34 Urine RBC (Auto) 1.0 /HPF (0.0-6.0) 08/11/17 00:34 U Epithel Cells (Auto) < 1.0 /HPF (0-13.0) 08/11/17 00:34 Hyaline Casts 1 /LPF 08/11/17 00:34 Urine Mucus Few /HPF 08/11/17 00:34 Blood Type B POSITIVE 08/10/17 20:08 Antibody Screen Negative 08/10/17 20:08 Crossmatch See Detail 08/10/17 20:08
[2017-08-12] MEDS ORDERED: NACL 0.9 (PRIMING MACHINE ONLY DIALYSIS) MC ONE (14:57)
[2017-08-13] MEDS: MORPHINE IV PRN ×2 (02:44→08:13)
[2017-08-13 05:42] LABS: Hematocrit 20.4 % (35.5-45.6); Hemoglobin 6.6 gm/dl (11.8-15.2); Mean Corpuscular HGB Conc 33 % (32-34); Mean Corpuscular Hemoglobin 27 pg (28-32); Mean Corpuscular Volume 84 fl (84-94); Platelet Count 273 K/mm3 (140-440); Red Blood Count 2.43 M/mm3 (3.65-5.03); Red Cell Distribution Width 18.7 % (13.2-15.2)
[2017-08-13 05:54] LABS: Calcium 7.7 mg/dL (8.4-10.2); Chloride 102.3 mmol/L (98-107); Potassium 4.8 mmol/L (3.6-5.0)
[2017-08-13] MEDS ORDERED: WATER FOR IRRIG STERILE IR ONE (10:39)
[2017-08-13] MEDS ORDERED: WATER FOR IRRIG STERILE ONE (10:39)
[2017-08-13] MEDS: NACL 0.9% 1000 ML 1,000 ML IV SCH (11:21)
--- NOTE | 2017-08-13 11:48 | Anesthesia Consultation ---
Anesthesia Consult and Med Hx Date of service: 08/13/17 - Airway Anesthetic Teeth Evaluation: Poor ROM Head & Neck: Inadequate Mental/Hyoid Distance: Adequate Mallampati Class: Class II Intubation Access Assessment: Possibly Difficult - Pulmonary Exam CTA: Yes - Pre-Operative Health Status ASA Pre-Surgery Classification: ASA4 Proposed Anesthetic Plan: MAC - Pulmonary Hx Smoking: Yes Hx Asthma: No SOB: Yes COPD: No Hx Pneumonia: No Hx Sleep Apnea: No - Cardiovascular System Hx Hypertension: Yes Hx Coronary Artery Disease: No Hx Heart Attack/AMI: No Hx Angina: No Hx Percutaneous Transluminal Coronary Angioplasty (PTCA): No Hx Cardia Arrhythmia: Yes (severe tachycardia) Hx Pacemaker: No Hx Internal Defibrillator: No Hx Valvular Heart Disease: No Hx Heart Murmur: No Hx Peripheral Vascular Disease: No - Central Nervous System Hx Seizures: No CVA: No Hx Back Pain: Yes Hx Psychiatric Problems: No - Endocrine Hx Renal Disease: Yes Hx End Stage Renal Disease: Yes (Vascath R Chest T, TTH, Sat HD) Hx Liver Disease: No Hx Non-Insulin Dependent Diabetes: Yes Hx Hypothyroidism: No Hx Hyperthyroidism: No - Hematic Hx Anemia: Yes Hx Sickle Cell Disease: No - Other Systems Hx Alcohol Use: No Hx Cancer: No - Additional Comments Anesthesia Medical History Comments: Cardiomyopathy with EF 20%. Severe pulmonary HTN. ESRD Dialysis 08/12/17.
--- NOTE | 2017-08-13 11:58 | Anesthesia Day of Surgery ---
Anesthesia Day of Surgery - Day of Surgery Patient Examined: Yes Patient H&P Reviewed: Yes Patient is NPO: Yes
[2017-08-13] MEDS ORDERED: AMIDATE IV ONE (12:04)
--- NOTE | 2017-08-13 12:38 | Post Operative Note ---
Pre-op diagnosis: GI bleed Post-op diagnosis: other (Normal EGD. Incomplete colonoscopy with dark old blood throughout visualized colon.) Findings: 1. Normal EGD 2. Old clot noted throughout the colon to 60 cm, at which point procedure was aborted due to poor prep. Procedure: EGD, Aborted colonoscopy Anesthesia: MAC Surgeon: MARTHA MINA Estimated blood loss: none Pathology: none Condition: stable Disposition: floor (Will need to repeat colonoscopy, with better prep. Pt not very compliant. Monitor H/H and transfuse as needed.)
--- NOTE | 2017-08-13 13:04 | Post Anesthesia Evaluation ---
- Post Anesthesia Evaluation Patient Participated: Yes Airway Patent: Yes Stable Respiratory Function: Yes Temp > 96.8F: Yes Pain Manageable: Yes Adequeate Hydration: Yes Anesthesia Complications: No
[2017-08-13] MEDS ORDERED: NACL 0.9% 1000 ML 1,000 ML ONE (13:31)
--- NOTE | 2017-08-13 15:23 | Operative Report ---
UPPER ENDOSCOPY AND ABORTED COLONOSCOPY REPORT. PROCEDURE: Upper endoscopy and aborted colonoscopy. PREOPERATIVE DIAGNOSIS: Gastrointestinal bleed. POSTOPERATIVE DIAGNOSIS: Normal upper endoscopy and incomplete colonoscopy due to poor prep and poor compliance with dark old blood and clots noted throughout the colon. SEDATION: MAC by Anesthesia. HISTORY: The patient is a 62-year-old man with end-stage renal disease and cardiomyopathy, who is poorly complaint. He came in with GI bleed and did not prep well yesterday. He was reprepped overnight and it is unclear how much of his prep he took, though the patient claims he drank the whole gallon. Procedure, indications, risks, and benefits were explained and consent was obtained. The patient was placed in left lateral decubitus position and sedated. Fuji video upper scope was passed through the mouth and oropharynx into the descending duodenum. Scope was then gradually withdrawn with close inspection of mucosa. FINDINGS: Visualized upper GI tract including esophagus, stomach and duodenum were normal with no evidence of mass lesions, vascular lesions or inflammation. No bleeding source was identified. Z-line of the esophagus was located at 43 cm from the incisors. The patient was subsequently rotated and a colonoscopy was performed. Fuji video colonoscope was passed through the rectum after digital examination and passed with significant difficulty to 60 cm. The difficulty was due to the poor quality of the prep with dark old clots throughout the colon. Because of this, the procedure was then aborted. FINDINGS: Visualized colonic lumen showed old blood and clots throughout with no evidence of active bleeding. No mass lesions were identified. The patient tolerated the procedures well without immediate complications. IMPRESSION: 1. Normal upper endoscopy with no evidence of bleeding source. 2. Old blood and clots noted throughout distal colon with no evidence of active bleeding. This was an aborted procedure due to the poor prep. PLAN: 1. Monitor H and H and transfuse overnight. 2. Reprep and attempt to repeat colonoscopy tomorrow. The patient was strongly admonished regarding need for compliance. JOB# [id number] HRC/NTS
[2017-08-13] MEDS ORDERED: NACL 0.9% 500 ML 500 ML IV ONE (15:40)
--- NOTE | 2017-08-13 15:41 | Progress Note ---
Assessment and Plan Assessment and plan: Patient is 62 yo man with a history of tobacco dependency, chronic pain syndrome on narcotics daily, CHF with EF 15-20% on 09/2016 Echo, severe pulmonary hypertension, severe TR, DVT, PVD with right bka, htn, hep. c, type 2 dm, discitis, aocd, severe protein calorie malnutrition, albumin 2.3, pcn allergy and chronic elevated troponin who presents with altered mental status, fatigue. Positive blood in the stools. He was last admitted to the ICU the end of June with the same complaint. GI bleed. It does not appear that he was scoped on the last admission as he was discharged the day the scope was to happen. Patient presents with BRBPR but has a known history of internal hemorrhoids. He has been scoped in the past and found no active bleeding. He is awake alert and oriented. Hemodynamically stable. Had HD yesterday at his outpatient facility -Acute on chronic blood loss anemia: s/p 4 units PRBC, hgb at 6.6 and patient with tachyacardia, will give additional one unit. GI following, EGD normal, colonoscopy With poor prep Old clot noted throughout the colon to 60 cm, old clot plan for redo tomorrow. counselling provided. avoid all NSAIDs, antiplatelet -End Stage renal disease on hemodialysis: nephrology to follow -Chronic pain syndrome: Treated with IV morphine, patient will continue to follow with pain specialist outpatient -Tobacco dependency: counseled on stopping -S/P right BKA. fall precautions. -DVT/GI prophylaxis History Interval history: Patient seen and examined today in no acute distress continues to complain of generalized body pain. No focality. Denies any nausea vomiting or diarrhea. Hospitalist Physical - Physical exam Narrative exam: VITAL SIGNS: Reviewed. GENERAL: The patient appeared well nourished and normally developed. Vital signs as documented. HEAD: No signs of head trauma. EYES: Pupils are equal. Extraocular motions intact. EARS: Hearing grossly intact. MOUTH: Oropharynx is normal. NECK: No adenopathy, no JVD. CHEST: Chest with clear breath sounds bilaterally. No wheezes, rales, or rhonchi. CARDIAC: Regular rate and rhythm. S1 and S2, without murmurs, gallops, or rubs. VASCULAR: No Edema. Peripheral pulses normal and equal in all extremities. ABDOMEN: Soft, without detectable tenderness. No sign of distention. No rebound or guarding, and no masses palpated. Bowel Sounds normal. MUSCULOSKELETAL: Good range of motion of all major joints except noted right BKA. Extremities without clubbing, cyanosis or edema. NEUROLOGIC EXAM: Alert and oriented x 3. No focal sensory or strength deficits. Speech normal. Follows commands. PSYCHIATRIC: Mood normal. SKIN: No rash or lesions. - Constitutional Vitals: Temp Pulse Resp BP Pulse Ox 98.0 F 113 H 9 L 165/83 97 08/13/17 12:34 08/13/17 13:04 08/13/17 13:04 08/13/17 13:04 08/13/17 13:04 General appearance: Present: no acute distress, well-nourished Results - Labs CBC & Chem 7: 08/13/17 04:48 08/13/17 04:48 Labs: Laboratory Last Values WBC 9.0 K/mm3 (4.5-11.0) 08/13/17 04:48 RBC 2.43 M/mm3 (3.65-5.03) L 08/13/17 04:48 Hgb 6.6 gm/dl (11.8-15.2) L 08/13/17 04:48 Hct 20.4 % (35.5-45.6) L 08/13/17 04:48 MCV 84 fl (84-94) 08/13/17 04:48 MCH 27 pg (28-32) L 08/13/17 04:48 MCHC 33 % (32-34) 08/13/17 04:48 RDW 18.7 % (13.2-15.2) H 08/13/17 04:48 Plt Count 273 K/mm3 (140-440) 08/13/17 04:48 Lymph % (Auto) 9.6 % (13.4-35.0) L 08/10/17 18:13 [place] % (Auto) 5.2 % (0.0-7.3) 08/10/17 18:13 Eos % (Auto) 0.4 % (0.0-4.3) 08/10/17 18:13 Baso % (Auto) 1.3 % (0.0-1.8) 08/10/17 18:13 Lymph # 0.6 K/mm3 (1.2-5.4) L 08/10/17 18:13 [place] # 0.3 K/mm3 (0.0-0.8) 08/10/17 18:13 Eos # 0.0 K/mm3 (0.0-0.4) 08/10/17 18:13 Baso # 0.1 K/mm3 (0.0-0.1) 08/10/17 18:13 Seg Neutrophils % 83.5 % (40.0-70.0) H 08/10/17 18:13 Seg Neutrophils # 5.5 K/mm3 (1.8-7.7) 08/10/17 18:13 PT 15.6 Sec. (12.2-14.9) H 08/11/17 07:35 INR 1.18 (0.87-1.13) H 08/11/17 07:35 APTT 23.0 Sec. (24.2-36.6) L 08/11/17 07:35 Sodium 138 mmol/L (137-145) 08/13/17 04:48 Potassium 4.8 mmol/L (3.6-5.0) 08/13/17 04:48 Chloride 108.1 mmol/L (98-107) H 08/12/17 04:42 Carbon Dioxide 22 mmol/L (22-30) 08/13/17 04:48 Anion Gap 16 mmol/L 08/12/17 04:42 BUN 20 mg/dL (9-20) 08/13/17 04:48 Creatinine 2.5 mg/dL (0.8-1.5) H 08/13/17 04:48 Estimated GFR 26 ml/min 08/13/17 04:48 BUN/Creatinine Ratio 8.00 % 08/13/17 04:48 Glucose 102 mg/dL (75-100) H 08/13/17 04:48 Calcium 7.7 mg/dL (8.4-10.2) L 08/13/17 04:48 Total Bilirubin 0.30 mg/dL (0.1-1.2) 08/10/17 18:13 AST 27 units/L (5-40) 08/10/17 18:13 ALT 15 units/L (7-56) 08/10/17 18:13 Alkaline Phosphatase 97 units/L (35-129) 08/10/17 18:13 Total Protein 5.6 g/dL (6.3-8.2) L 08/10/17 18:13 Albumin 2.5 g/dL (3.9-5) L 08/10/17 18:13 Albumin/Globulin Ratio 0.8 % 08/10/17 18:13 Urine Color Yellow (Yellow) 08/11/17 00:34 Urine Turbidity Clear (Clear) 08/11/17 00:34 Urine pH 7.0 (5.0-7.0) 08/11/17 00:34 Ur Specific [place] 1.011 (1.003-1.030) 08/11/17 00:34 Urine Protein 100 mg/dl mg/dL (Negative) 08/11/17 00:34 Urine Glucose (UA) Neg mg/dL (Negative) 08/11/17 00:34 Urine Ketones Neg mg/dL (Negative) 08/11/17 00:34 Urine Blood Neg (Negative) 08/11/17 00:34 Urine Nitrite Neg (Negative) 08/11/17 00:34 Urine Bilirubin Neg (Negative) 08/11/17 00:34 Urine Urobilinogen < 2.0 mg/dL (<2.0) 08/11/17 00:34 Ur Leukocyte Esterase Neg (Negative) 08/11/17 00:34 Urine WBC (Auto) < 1.0 /HPF (0.0-6.0) 08/11/17 00:34 Urine RBC (Auto) 1.0 /HPF (0.0-6.0) 08/11/17 00:34 U Epithel Cells (Auto) < 1.0 /HPF (0-13.0) 08/11/17 00:34 Hyaline Casts 1 /LPF 08/11/17 00:34 Urine Mucus Few /HPF 08/11/17 00:34 Blood Type B POSITIVE 08/10/17 20:08 Antibody Screen Negative 08/10/17 20:08 Crossmatch See Detail 08/10/17 20:08
[2017-08-13] MEDS ORDERED: GOLYTELY PO ONE (16:06)
--- NOTE | 2017-08-13 16:48 | Progress Note ---
Subjective Principal diagnosis: anemia, gi bleed Interval history: Patient was seen today for follow-up around 9:30 in the morning on multiple renal-related issues Denies any complaints of chest pain pressure or shortness of breath He wants to cut down his dialysis to twice a week patient will be going for colonoscopy today,still continues to have bright red blood per rectum Events of 24 hours, interdisciplinary notes were also reviewed Lab results were reviewed Social history: Reviewed Medication: Reviewed Family history: Reviewed Allergies: Reviewed Physical examination General; no acute distress HEENT: Mild pallor no icterus oral mucosa moist Neck: Supple soft no jugular venous distention Chest: Bilateral clear to auscultation anteriorly posteriorly a few faint basilar crackles at the lung bases no wheezes Cardiovascular: S1-S2 heart no S3-S4 Abdomen: Soft nontender no voluntary guarding rigidity rebound no organomegaly no masses no suprapubic fullness no CVA tenderness Extremity: Minimal edema dry skin no tenderness in the Area,patient has amputation of all leg edema is resolved Derm: Dry skin Assessment and plan end-stage renal disease: Patient is very poorly compliant I advised him to dialyze 3 times a week Patient still keeps refusing and wants her dialyze only twice a week GI bleed status post packed red blood cell transfusion pending GI workup Still continues to have bright red blood per rectum patient has history of high-grade proteinuria edema congestive heart failure; educated the patient to stay with 3 times every week dialysis Current dialysis access is central venous catheter fistula currently maturing if patient will continue to dictate his care, outcome will be unfortunate Plan of care was discussed with patient from renal perspective All questions were answered, patient does have good understanding of renal- related issues We'll continue to follow and make recommendation from renal standpoint Objective - Vital Signs Vital signs: Vital Signs - 12hr 08/13/17 08/13/17 08/13/17 10:53 11:00 12:34 Temperature 98.2 F 98.2 F 98.0 F Pulse Rate 122 H 122 H 130 H Respiratory 14 14 16 Rate Blood Pressure 195/99 195/99 170/81 O2 Sat by Pulse 100 100 100 Oximetry 08/13/17 08/13/17 12:49 13:04 Temperature Pulse Rate 121 H 113 H Respiratory 13 9 L Rate Blood Pressure 180/92 165/83 O2 Sat by Pulse 96 97 Oximetry - Lab 08/13/17 04:48 08/13/17 04:48 Most recent lab results Calcium 7.7 mg/dL (8.4-10.2) L 08/13/17 04:48
[2017-08-14 03:19] LABS: Mean Corpuscular HGB Conc 32 % (32-34); Mean Corpuscular Hemoglobin 27 pg (28-32); Mean Corpuscular Volume 84 fl (84-94); Platelet Count 256 K/mm3 (140-440); Red Blood Count 2.09 M/mm3 (3.65-5.03); Red Cell Distribution Width 19.5 % (13.2-15.2); White Blood Count 7.7 K/mm3 (4.5-11.0)
[2017-08-14 03:28] LABS: Hematocrit 17.5 % (35.5-45.6); Hemoglobin 5.6 gm/dl (11.8-15.2)
[2017-08-14 03:31] LABS: BUN/Creatinine Ratio 7.14; Calcium 7.9 mg/dL (8.4-10.2); Chloride 104.5 mmol/L (98-107); Potassium 4.9 mmol/L (3.6-5.0)
[2017-08-14] MEDS: MORPHINE IV PRN ×3 (03:50→19:57)
[2017-08-14] MEDS ORDERED: NACL 0.9% 500 ML 500 ML IV ONE (04:01)
--- NOTE | 2017-08-14 08:20 | Progress Note ---
Assessment and Plan Assessment and plan: Patient is 62 yo man with a history of tobacco dependency, chronic pain syndrome on narcotics daily, CHF with EF 15-20% on 09/2016 Echo, severe pulmonary hypertension, severe TR, DVT, PVD with right bka, htn, hep. c, type 2 dm, discitis, aocd, severe protein calorie malnutrition, albumin 2.3, pcn allergy and chronic elevated troponin who presents with altered mental status, fatigue. Positive blood in the stools. He was last admitted to the ICU the end of June with the same complaint. GI bleed. It does not appear that he was scoped on the last admission as he was discharged the day the scope was to happen. Patient presents with BRBPR but has a known history of internal hemorrhoids. He has been scoped in the past and found no active bleeding. He is awake alert and oriented. Hemodynamically stable. Had HD yesterday at his outpatient facility -Acute on chronic blood loss anemia: * Further drop to <6 s/p 4 units PRBC, hgb at 6.6 and patient with tachyacardia , currently transfusing the additional unit ordered yesterday. Will repeat H/H post transfusion. Patient may need additional units. GI following, EGD normal, colonoscopy With poor prep Old clot noted throughout the colon to 60 cm, old clot plan for redo Today. counselling provided. avoid all NSAIDs, antiplatelet * NM scan today,. -End Stage renal disease on hemodialysis: nephrology FOLLOWING, Poor compliance addressed. -Chronic pain syndrome: Treated with IV morphine, patient will continue to follow with pain specialist outpatient -Tobacco dependency: counseled on stopping -Stable Systolic Congestive heart failure -Dilated Cardiomyopathy LVEF 15-20% -Moderate TR -Severe Pulmonary HTN -High grade proteinuria -S/P right BKA. fall precautions. -DVT/GI prophylaxis Discussed with GI The high probability of a clinically significant, sudden or life threatening deterioration of the [gi, HEMATOLOGY] system(s) required my full and direct attention, intervention and personal management. The aggregate critical care time was [35] minutes. This time is in addition to time spent performing reported procedures but includes the following: [x] Data Review and interpretation [x] Patient assessment and monitoring of vital signs [x] Documentation [x] Medication orders and management History Interval history: Patient seen and examined today in no acute distress still with bleed. Hospitalist Physical - Physical exam Narrative exam: VITAL SIGNS: Reviewed. GENERAL: The patient appeared well nourished and normally developed. Vital signs as documented. HEAD: No signs of head trauma. EYES: Pupils are equal. Extraocular motions intact. EARS: Hearing grossly intact. MOUTH: Oropharynx is normal. NECK: No adenopathy, no JVD. CHEST: Chest with clear breath sounds bilaterally. No wheezes, rales, or rhonchi. CARDIAC: Regular rate and rhythm. S1 and S2, without murmurs, gallops, or rubs. VASCULAR: No Edema. Peripheral pulses normal and equal in all extremities. ABDOMEN: Soft, without detectable tenderness. No sign of distention. No rebound or guarding, and no masses palpated. Bowel Sounds normal. MUSCULOSKELETAL: Good range of motion of all major joints except noted right BKA. Extremities without clubbing, cyanosis or edema. NEUROLOGIC EXAM: Alert and oriented x 3. No focal sensory or strength deficits. Speech normal. Follows commands. PSYCHIATRIC: Mood normal. SKIN: No rash or lesions. - Constitutional Vitals: Temp Pulse Resp BP Pulse Ox 98.7 F 114 H 22 164/72 96 08/14/17 05:07 08/14/17 05:07 08/14/17 05:07 08/14/17 05:07 08/14/17 05:07 General appearance: Present: no acute distress, well-nourished Results - Labs CBC & Chem 7: 08/14/17 02:48 08/14/17 02:48 Labs: Laboratory Last Values WBC 7.7 K/mm3 (4.5-11.0) 08/14/17 02:48 RBC 2.09 M/mm3 (3.65-5.03) L 08/14/17 02:48 Hgb 5.6 gm/dl (11.8-15.2) L* 08/14/17 02:48 Hct 17.5 % (35.5-45.6) L* 08/14/17 02:48 MCV 84 fl (84-94) 08/14/17 02:48 MCH 27 pg (28-32) L 08/14/17 02:48 MCHC 32 % (32-34) 08/14/17 02:48 RDW 19.5 % (13.2-15.2) H 08/14/17 02:48 Plt Count 256 K/mm3 (140-440) 08/14/17 02:48 Lymph % (Auto) 9.6 % (13.4-35.0) L 08/10/17 18:13 [place] % (Auto) 5.2 % (0.0-7.3) 08/10/17 18:13 Eos % (Auto) 0.4 % (0.0-4.3) 08/10/17 18:13 Baso % (Auto) 1.3 % (0.0-1.8) 08/10/17 18:13 Lymph # 0.6 K/mm3 (1.2-5.4) L 08/10/17 18:13 [place] # 0.3 K/mm3 (0.0-0.8) 08/10/17 18:13 Eos # 0.0 K/mm3 (0.0-0.4) 08/10/17 18:13 Baso # 0.1 K/mm3 (0.0-0.1) 08/10/17 18:13 Seg Neutrophils % 83.5 % (40.0-70.0) H 08/10/17 18:13 Seg Neutrophils # 5.5 K/mm3 (1.8-7.7) 08/10/17 18:13 PT 15.6 Sec. (12.2-14.9) H 08/11/17 07:35 INR 1.18 (0.87-1.13) H 08/11/17 07:35 APTT 23.0 Sec. (24.2-36.6) L 08/11/17 07:35 Sodium 141 mmol/L (137-145) 08/14/17 02:48 Potassium 4.9 mmol/L (3.6-5.0) 08/14/17 02:48 Chloride 104.5 mmol/L (98-107) 08/14/17 02:48 Carbon Dioxide 24 mmol/L (22-30) 08/14/17 02:48 Anion Gap 17 mmol/L 08/14/17 02:48 BUN 25 mg/dL (9-20) H 08/14/17 02:48 Creatinine 3.5 mg/dL (0.8-1.5) H 08/14/17 02:48 Estimated GFR 18 ml/min 08/14/17 02:48 BUN/Creatinine Ratio 7.14 % 08/14/17 02:48 Glucose 92 mg/dL (75-100) 08/14/17 02:48 Calcium 7.9 mg/dL (8.4-10.2) L 08/14/17 02:48 Total Bilirubin 0.30 mg/dL (0.1-1.2) 08/10/17 18:13 AST 27 units/L (5-40) 08/10/17 18:13 ALT 15 units/L (7-56) 08/10/17 18:13 Alkaline Phosphatase 97 units/L (35-129) 08/10/17 18:13 Total Protein 5.6 g/dL (6.3-8.2) L 08/10/17 18:13 Albumin 2.5 g/dL (3.9-5) L 08/10/17 18:13 Albumin/Globulin Ratio 0.8 % 08/10/17 18:13 Urine Color Yellow (Yellow) 08/11/17 00:34 Urine Turbidity Clear (Clear) 08/11/17 00:34 Urine pH 7.0 (5.0-7.0) 08/11/17 00:34 Ur Specific [place] 1.011 (1.003-1.030) 08/11/17 00:34 Urine Protein 100 mg/dl mg/dL (Negative) 08/11/17 00:34 Urine Glucose (UA) Neg mg/dL (Negative) 08/11/17 00:34 Urine Ketones Neg mg/dL (Negative) 08/11/17 00:34 Urine Blood Neg (Negative) 08/11/17 00:34 Urine Nitrite Neg (Negative) 08/11/17 00:34 Urine Bilirubin Neg (Negative) 08/11/17 00:34 Urine Urobilinogen < 2.0 mg/dL (<2.0) 08/11/17 00:34 Ur Leukocyte Esterase Neg (Negative) 08/11/17 00:34 Urine WBC (Auto) < 1.0 /HPF (0.0-6.0) 08/11/17 00:34 Urine RBC (Auto) 1.0 /HPF (0.0-6.0) 08/11/17 00:34 U Epithel Cells (Auto) < 1.0 /HPF (0-13.0) 08/11/17 00:34 Hyaline Casts 1 /LPF 08/11/17 00:34 Urine Mucus Few /HPF 08/11/17 00:34 Blood Type B POSITIVE 08/14/17 02:55 Antibody Screen Negative 08/14/17 02:55 Crossmatch See Detail 08/14/17 02:55
--- NOTE | 2017-08-14 09:08 | Progress Note ---
Subjective Principal diagnosis: anemia, gi bleed Interval history: Patient was seen today for follow-up he still continues to have bright red blood per rectum Denies any complaints of dizziness lightheadedness Getting packed red blood cell transfusion No acute complaints reported by the patient Events of 24 hours noted Vitals labs intake output medications reviewed HEENT: Oral mucosa moist Neck supple no JVD Chest: Clear to auscultation Heart: Regular rate and rhythm Abdomen: Soft nontender Extremity: Mild edema dry skin patient noted to have bright leg blood on this bed sheet Assessment and plan and surgical disease: Patient will need to continue with renal replacement therapy anemia and end-stage renal disease with GI bleed Currently active being followed by gastroenterology service patient will require further packed red blood cell transfusion High-grade proteinuria edema currently dialysis dependent noncompliant patient decided to reduce his frequency of dialysis, and dictate a lot of his care which is not in his favor I believe he'll benefit from further transfusion of packed red blood cell and close monitoring of hemodynamics I have adequately counseled and educated the patient about plan of care need for close monitoring of hemodynamics, hemoglobin and hematocrit packed red blood cell transfusion and indicated, If hemodynamically unstable may need transfer to ICU GI service to follow Hemodialysis is planned We'll continue to follow and make recommendation from renal standpoint Objective - Vital Signs Vital signs: Vital Signs - 12hr 08/14/17 08/14/17 08/14/17 01:06 03:37 05:07 Temperature 98.9 F 98.4 F 98.7 F Pulse Rate 114 H 112 H 114 H Respiratory 18 20 22 Rate Blood Pressure 172/70 160/72 164/72 O2 Sat by Pulse 96 97 96 Oximetry - Lab 08/14/17 16:02 08/14/17 02:48 Most recent lab results Calcium 7.9 mg/dL (8.4-10.2) L 08/14/17 02:48
--- NOTE | 2017-08-14 10:38 | Gastroenterology Progress Note ---
Assessment and Plan 1.anemia 2.GI bleed 3.hematochezia -HGB 5.6 today -transfusing PRBCs currently -continue to monitor H/H and transfuse as needed -hold blood thinning medications -pt currently hemodynamically stable but actively having BMs with bright red blood in stool -s/p EGD yesterday that was normal and an incomplete colon to 60cm due to poor prep -repeat colon cancelled for today due to pt still remaining non-compliant with drinking all of colon prep -will order stat bleeding scan -will order NG tube to be placed this afternoon with golytely given via NG at a rate of 1Liter per hour for a total of 4liters -NPO after MN -will schedule for colonoscopy in am -will follow Subjective Date of service: 08/14/17 Principal diagnosis: anemia, gi bleed Interval history: Patient in bed. Pt remains non-compliant with drinking colon prep with only half of the prep taken. No acute distress at this time, however pt is actively having BMs with bright red blood in stool. Objective - Constitutional Vitals: Temp Pulse Resp BP Pulse Ox 98.7 F 114 H 22 164/72 96 08/14/17 05:07 08/14/17 05:07 08/14/17 05:07 08/14/17 05:07 08/14/17 05:07 General appearance: no acute distress - EENT Eyes: PERRL, EOM intact ENT: hearing intact - Respiratory Respiratory: bilateral: CTA (anterior) - Cardiovascular Rhythm: other (tachycardia) Heart Sounds: Present: S1 & S2 - Extremities Extremity abnormal: other (right BKA) - Gastrointestinal General gastrointestinal: Present: soft, non-tender, non-distended, normal bowel sounds - Integumentary Integumentary: Present: warm, dry - Neurologic Neurological: alert and oriented x3 - Labs CBC & Chem 7: 08/14/17 02:48 08/14/17 02:48 Labs: Laboratory Results - last 24 hr 08/14/17 08/14/17 08/14/17 02:48 02:48 02:55 WBC 7.7 RBC 2.09 L Hgb 5.6 L* Hct 17.5 L* MCV 84 MCH 27 L MCHC 32 RDW 19.5 H Plt Count 256 Sodium 141 Potassium 4.9 Chloride 104.5 Carbon Dioxide 24 Anion Gap 17 BUN 25 H Creatinine 3.5 H Estimated GFR 18 BUN/Creatinine Ratio 7.14 Glucose 92 Calcium 7.9 L Blood Type B POSITIVE Antibody Screen Negative Crossmatch See Detail
[2017-08-14] MEDS ORDERED: GOLYTELY PO ONE (11:00)
[2017-08-14] MEDS ORDERED: NACL 0.9% 100 ML IV PRN (11:00)
[2017-08-14] MEDS ORDERED: FLUSH HEPARIN IV ONE (12:00)
[2017-08-14 16:31] LABS: Hemoglobin 6.2 gm/dl (11.8-15.2)
[2017-08-15 06:06] LABS: Hemoglobin 5.8 gm/dl (11.8-15.2)
[2017-08-15 06:07] LABS: Hematocrit 18.6 % (35.5-45.6)
[2017-08-15 06:23] LABS: BUN/Creatinine Ratio 5.41; Calcium 7.7 mg/dL (8.4-10.2); Chloride 102.6 mmol/L (98-107); Potassium 4.8 mmol/L (3.6-5.0)
--- NOTE | 2017-08-15 07:27 | Progress Note ---
Assessment and Plan Assessment and plan: Patient is 62 yo man with a history of tobacco dependency, chronic pain syndrome on narcotics daily, CHF with EF 15-20% on 09/2016 Echo, severe pulmonary hypertension, severe TR, DVT, PVD with right bka, htn, hep. c, type 2 dm, discitis, aocd, severe protein calorie malnutrition, albumin 2.3, pcn allergy and chronic elevated troponin who presents with altered mental status, fatigue. Positive blood in the stools. He was last admitted to the ICU the end of June with the same complaint. GI bleed. It does not appear that he was scoped on the last admission as he was discharged the day the scope was to happen. Patient presents with BRBPR but has a known history of internal hemorrhoids. He has been scoped in the past and found no active bleeding. He is awake alert and oriented. Hemodynamically stable. Had HD yesterday at his outpatient facility -Acute on chronic blood loss anemia: SEVERE * Still with active bleed. * GI following, bleeding scan Positive. * CT [facility], VASCULAR CONSULT * PPI -GI Bleed * still with severe anemia. hgb today 5.5. will give 2 more units. Discussed extensively with GI yesterday. NM Bleeding scan ordered. also spoke to NM team to proceed with treatment. GI following, EGD normal, colonoscopy With poor prep Old clot noted throughout the colon to 60 cm, old clot plan for redo Today. counselling provided. avoid all NSAIDs, antiplatelet. NGT placed for prep intake. * NM scan today,. -End Stage renal disease on hemodialysis: nephrology FOLLOWING, Poor compliance addressed. CONTINUE HD. -Chronic pain syndrome: Treated with IV morphine, patient will continue to follow with pain specialist outpatient -Tobacco dependency: counseled on stopping -Stable Systolic Congestive heart failure -Hypetensive urgency * add hydralazine prn -Sinus Tachycardia * Secondary to severe anemia -Dilated Cardiomyopathy LVEF 15-20% -Moderate TR -Severe Pulmonary HTN -High grade proteinuria -S/P right BKA. fall precautions. -DVT/GI prophylaxis Discussed with GI -Poor prognosis. The high probability of a clinically significant, sudden or life threatening deterioration of the [gi, HEMATOLOGY] system(s) required my full and direct attention, intervention and personal management. The aggregate critical care time was [35] minutes. This time is in addition to time spent performing reported procedures but includes the following: [x] Data Review and interpretation [x] Patient assessment and monitoring of vital signs [x] Documentation [x] Medication orders and management History Interval history: Patient seen and examined today in no acute distress still with bleed. lots of blood noticed on the bed today, other arredondo no new complaints. Hospitalist Physical - Physical exam Narrative exam: VITAL SIGNS: Reviewed. GENERAL: The patient appeared well nourished and normally developed. Vital signs as documented. HEAD: No signs of head trauma. EYES: Pupils are equal. Extraocular motions intact. EARS: Hearing grossly intact. MOUTH: Oropharynx is normal. NECK: No adenopathy, no JVD. CHEST: Chest with clear breath sounds bilaterally. No wheezes, rales, or rhonchi. CARDIAC: Regular rate and rhythm. S1 and S2, without murmurs, gallops, or rubs. VASCULAR: No Edema. Peripheral pulses normal and equal in all extremities. ABDOMEN: Soft, without detectable tenderness. No sign of distention. No rebound or guarding, and no masses palpated. Bowel Sounds normal. MUSCULOSKELETAL: Good range of motion of all major joints except noted right BKA. Extremities without clubbing, cyanosis or edema. NEUROLOGIC EXAM: Alert and oriented x 3. No focal sensory or strength deficits. Speech normal. Follows commands. PSYCHIATRIC: Mood normal. SKIN: No rash or lesions. - Constitutional Vitals: Temp Pulse Resp BP Pulse Ox 98.8 F 117 H 18 181/87 98 08/15/17 05:09 08/15/17 05:09 08/15/17 05:09 08/15/17 05:09 08/15/17 05:09 General appearance: Present: no acute distress, well-nourished Results - Labs CBC & Chem 7: 08/15/17 16:12 08/15/17 05:00 Labs: Laboratory Last Values WBC 7.7 K/mm3 (4.5-11.0) 08/14/17 02:48 RBC 2.09 M/mm3 (3.65-5.03) L 08/14/17 02:48 Hgb 5.8 gm/dl (11.8-15.2) L* 08/15/17 05:00 Hct 18.6 % (35.5-45.6) L* 08/15/17 05:00 MCV 84 fl (84-94) 08/14/17 02:48 MCH 27 pg (28-32) L 08/14/17 02:48 MCHC 32 % (32-34) 08/14/17 02:48 RDW 19.5 % (13.2-15.2) H 08/14/17 02:48 Plt Count 256 K/mm3 (140-440) 08/14/17 02:48 Lymph % (Auto) 9.6 % (13.4-35.0) L 08/10/17 18:13 [place] % (Auto) 5.2 % (0.0-7.3) 08/10/17 18:13 Eos % (Auto) 0.4 % (0.0-4.3) 08/10/17 18:13 Baso % (Auto) 1.3 % (0.0-1.8) 08/10/17 18:13 Lymph # 0.6 K/mm3 (1.2-5.4) L 08/10/17 18:13 [place] # 0.3 K/mm3 (0.0-0.8) 08/10/17 18:13 Eos # 0.0 K/mm3 (0.0-0.4) 08/10/17 18:13 Baso # 0.1 K/mm3 (0.0-0.1) 08/10/17 18:13 Seg Neutrophils % 83.5 % (40.0-70.0) H 08/10/17 18:13 Seg Neutrophils # 5.5 K/mm3 (1.8-7.7) 08/10/17 18:13 PT 15.6 Sec. (12.2-14.9) H 08/11/17 07:35 INR 1.18 (0.87-1.13) H 08/11/17 07:35 APTT 23.0 Sec. (24.2-36.6) L 08/11/17 07:35 Sodium 142 mmol/L (137-145) 08/15/17 05:00 Potassium 4.8 mmol/L (3.6-5.0) 08/15/17 05:00 Chloride 102.6 mmol/L (98-107) 08/15/17 05:00 Carbon Dioxide 26 mmol/L (22-30) 08/15/17 05:00 Anion Gap 18 mmol/L 08/15/17 05:00 BUN 13 mg/dL (9-20) 08/15/17 05:00 Creatinine 2.4 mg/dL (0.8-1.5) H 08/15/17 05:00 Estimated GFR 28 ml/min 08/15/17 05:00 BUN/Creatinine Ratio 5.41 % 08/15/17 05:00 Glucose 100 mg/dL (75-100) 08/15/17 05:00 Calcium 7.7 mg/dL (8.4-10.2) L 08/15/17 05:00 Total Bilirubin 0.30 mg/dL (0.1-1.2) 08/10/17 18:13 AST 27 units/L (5-40) 08/10/17 18:13 ALT 15 units/L (7-56) 08/10/17 18:13 Alkaline Phosphatase 97 units/L (35-129) 08/10/17 18:13 Total Protein 5.6 g/dL (6.3-8.2) L 08/10/17 18:13 Albumin 2.5 g/dL (3.9-5) L 08/10/17 18:13 Albumin/Globulin Ratio 0.8 % 08/10/17 18:13 Urine Color Yellow (Yellow) 08/11/17 00:34 Urine Turbidity Clear (Clear) 08/11/17 00:34 Urine pH 7.0 (5.0-7.0) 08/11/17 00:34 Ur Specific [place] 1.011 (1.003-1.030) 08/11/17 00:34 Urine Protein 100 mg/dl mg/dL (Negative) 08/11/17 00:34 Urine Glucose (UA) Neg mg/dL (Negative) 08/11/17 00:34 Urine Ketones Neg mg/dL (Negative) 08/11/17 00:34 Urine Blood Neg (Negative) 08/11/17 00:34 Urine Nitrite Neg (Negative) 08/11/17 00:34 Urine Bilirubin Neg (Negative) 08/11/17 00:34 Urine Urobilinogen < 2.0 mg/dL (<2.0) 08/11/17 00:34 Ur Leukocyte Esterase Neg (Negative) 08/11/17 00:34 Urine WBC (Auto) < 1.0 /HPF (0.0-6.0) 08/11/17 00:34 Urine RBC (Auto) 1.0 /HPF (0.0-6.0) 08/11/17 00:34 U Epithel Cells (Auto) < 1.0 /HPF (0-13.0) 08/11/17 00:34 Hyaline Casts 1 /LPF 08/11/17 00:34 Urine Mucus Few /HPF 08/11/17 00:34 Blood Type B POSITIVE 08/14/17 02:55 Antibody Screen Negative 08/14/17 02:55 Crossmatch See Detail 08/14/17 02:55 - Imaging and Cardiology CT scan - abdomen: pending
--- NOTE | 2017-08-15 07:43 | Nuclear Medicine Report ---
BLEEDING SCAN: History: Active GI bleeding. Comment: This examination is just presented to me for interpretation. Standard distribution of radiotracer is noted. No enteric activity to suggest gastrointestinal bleeding is noted. IMPRESSION: No evidence for active bleeding at the time of study.
[2017-08-15] MEDS ORDERED: NACL 0.9% 500 ML 500 ML IV NR (08:00)
[2017-08-15] MEDS ORDERED: APRESOLINE IV PRN (08:00)
--- NOTE | 2017-08-15 09:33 | Progress Note ---
Subjective Principal diagnosis: anemia, gi bleed Interval history: Patient was seen today for follow-up, regarding multiple renal related issues Events of 24 hours were noted, has had GI bleed Patient denies any complaints of chest pain pressure or shortness of breath Interdisciplinary Notes were also reviewed from past 24 hours Vitals labs intake output medications: Reviewed Past medical history: Reviewed Allergies: Reviewed Social history: Reviewed Family history: Reviewed Physical examination Gen.: No acute distress HEENT: Mild pallor nor icterus no uremic order Neck: Supple without any mass or JVD Chest: Clear to auscultation anteriorly Heart: Regular rate and rhythm S1 and S2 heard Abdomen: Soft nontender no suprapubic fullness no masses no renal bruit Extremity: Edema , no peripheral cyanosis Skin: No petechial rashes dry skin Assessment and plan End-stage renal disease: Patient is currently on hemodialysis at [facility]; by choice he was dialyzing twice a week which he should not Patient does have history of high-grade proteinuria, congestive heart failure and fluid retention; he needs dialysis at least 3 times a week currently doing better in terms of volume Recurrent GI bleed with bright red blood per rectum currently being followed by gastroenterology services/ Patient needs to have frequent H&H at least every 8 hours and transfuse as needed Current hemoglobin is 5.8 potassium 4.8 Patient is allergic to heparin , plan verified with the patient he says wound did not heal when he was on heparin ? true allergy His bleeding scan was discontinued History of congestive heart failure, DVT, severe tricuspid regurgitation, ejection fraction 15-20%, type 2 diabetes, hepatitis C Chronically noncompliant patient GI to comment ? Patient needs surgical opinion Significant lab finding were discussed with patient unexplained and simple Serbian Patient does have good understanding about renal related issues We'll continue to follow and make recommendation from renal standpoint Objective - Vital Signs Vital signs: Vital Signs - 12hr 08/15/17 08/15/17 08/15/17 00:11 05:09 08:38 Temperature 98.8 F 98.8 F 98.7 F Pulse Rate 129 H 117 H 111 H Respiratory 18 18 20 Rate Blood Pressure 185/94 181/87 183/86 O2 Sat by Pulse 98 98 99 Oximetry 08/15/17 08:39 Temperature Pulse Rate 113 H Respiratory Rate Blood Pressure O2 Sat by Pulse 98 Oximetry - Lab 08/15/17 05:00 08/15/17 05:00 Most recent lab results Calcium 7.7 mg/dL (8.4-10.2) L 08/15/17 05:00
[2017-08-15] MEDS ORDERED: WATER FOR IRRIG STERILE IR ONE (11:41)
[2017-08-15] MEDS ORDERED: WATER FOR IRRIG STERILE ONE (11:41)
--- NOTE | 2017-08-15 12:19 | Anesthesia Consultation ---
Anesthesia Consult and Med Hx Date of service: 08/15/17 - Airway Anesthetic Teeth Evaluation: Good ROM Head & Neck: Adequate Mental/Hyoid Distance: Adequate Mallampati Class: Class II Intubation Access Assessment: Probably Good - Pulmonary Exam CTA: Yes - Cardiac Exam Cardiac Exam: RRR - Pre-Operative Health Status ASA Pre-Surgery Classification: ASA4 Proposed Anesthetic Plan: MAC - Pulmonary Hx Smoking: Yes Hx Asthma: No SOB: Yes COPD: No Hx Pneumonia: No Hx Sleep Apnea: No - Cardiovascular System Hx Hypertension: Yes Hx Coronary Artery Disease: No Hx Heart Attack/AMI: No Hx Angina: No Hx Percutaneous Transluminal Coronary Angioplasty (PTCA): No Hx Cardia Arrhythmia: Yes (severe tachycardia) Hx Pacemaker: No Hx Internal Defibrillator: No Hx Valvular Heart Disease: No Hx Heart Murmur: No Hx Peripheral Vascular Disease: No - Central Nervous System Hx Seizures: No CVA: No Hx Back Pain: Yes Hx Psychiatric Problems: No - Endocrine Hx Renal Disease: Yes Hx End Stage Renal Disease: Yes (Vascath R Chest T, TTH, Sat HD) Hx Liver Disease: No Hx Non-Insulin Dependent Diabetes: Yes Hx Hypothyroidism: No Hx Hyperthyroidism: No - Hematic Hx Anemia: Yes Hx Sickle Cell Disease: No - Other Systems Hx Alcohol Use: No Hx Cancer: No - Additional Comments Anesthesia Medical History Comments: Cardiomyopathy with EF 20%. Severe pulmonary HTN. ESRD Dialysis 08/12/17.
--- NOTE | 2017-08-15 12:19 | Anesthesia Day of Surgery ---
Anesthesia Day of Surgery - Day of Surgery Patient Examined: Yes Patient H&P Reviewed: Yes Patient is NPO: Yes
[2017-08-15] MEDS ORDERED: XYLOCAINE 2% INFILTRATI ONE (12:29)
--- NOTE | 2017-08-15 12:52 | Post Operative Note ---
Pre-op diagnosis: GI bleed Post-op diagnosis: other (Fresh blood in terminal ileum. Blood and clot noted throughout colon, washed away easily. Diverticulosis noted.) Findings: 1. Normal TI with fresh blood noted. 2. Mild sigmoid diverticulosis. 3. Visualized colonic mucosa is normal, with blood and clot scattered throughout, but no bleeding site noted. Procedure: Colonoscopy Anesthesia: MAC Surgeon: MARTHA MINA Estimated blood loss: none Pathology: none Condition: stable Disposition: floor (Likely small bowel bleed, with negative EGD 3 days ago. 1. Get RBC scan now. 2. DDAVP)
[2017-08-15] MEDS ORDERED: DIPRIVAN 10 MG/ML IV ONE (13:35)
--- NOTE | 2017-08-15 13:39 | Post Anesthesia Evaluation ---
- Post Anesthesia Evaluation Patient Participated: Yes Airway Patent: Yes Stable Respiratory Function: Yes Nausea/Vomiting: No Temp > 96.8F: Yes Pain Manageable: Yes Adequeate Hydration: Yes Anesthesia Complications: No Block Receding Appropriately: Not Applicable Patient on Ventilator: No
[2017-08-15] MEDS ORDERED: DDAVP IV ONE (13:55)
[2017-08-15] MEDS ORDERED: NACL 0.9% IV ONE (13:55)
--- NOTE | 2017-08-15 14:50 | Nuclear Medicine Report ---
NUCLEAR MEDICINE GI BLEEDING SCAN History: Small bowel bleeding, GI bleed Findings: Distribution of the radiotracer is physiologic. There is however a focus of radiotracer accumulation in the right lower quadrant which could represent a small area of bleeding. This is presumably in the distal small bowel or cecum. Impression: Possible small bleed in the right lower quadrant as described. Consider further evaluation with CT if needed.
[2017-08-15 16:32] LABS: Hematocrit 17.1 % (35.5-45.6); Hemoglobin 5.4 gm/dl (11.8-15.2)
--- NOTE | 2017-08-15 18:07 | Event Note ---
Date: 08/15/17 I was called to the CT scanner because the patient was refusing the study. I spoke to the patient who claimed he was claustrophobic. I explained that only his lower abdomen would be in the scanner. I also reviewed with him in detail the importance of the scan relating to how it helps to localize bleeding and possibly treatment. Despite understanding the risks of not undergoing the study , he still refused. The patient is alert and oriented, and fully competent. As such, he was transported back to his room.
[2017-08-15] MEDS: NACL 0.9% 1000 ML 1,000 ML IV SCH (18:55)
[2017-08-15] MEDS: PROTONIX PO SCH ×2 (20:06→21:11)
[2017-08-16] MEDS: MORPHINE IV PRN (00:01)
[2017-08-16 07:47] LABS: Hematocrit 21.6 % (35.5-45.6); Hemoglobin 7.2 gm/dl (11.8-15.2)
[2017-08-16 08:08] LABS: BUN/Creatinine Ratio 4.7; Calcium 7.6 mg/dL (8.4-10.2); Chloride 106.6 mmol/L (98-107); Potassium 4.7 mmol/L (3.6-5.0)
--- NOTE | 2017-08-16 09:24 | Progress Note ---
Assessment and Plan Assessment and plan: Patient is 62 yo man with a history of tobacco dependency, chronic pain syndrome on narcotics daily, CHF with EF 15-20% on 09/2016 Echo, severe pulmonary hypertension, severe TR, DVT, PVD with right bka, htn, hep. c, type 2 dm, disKcitis, aocd, severe protein calorie malnutrition, albumin 2.3, pcn allergy and chronic elevated troponin who presents with altered mental status, fatigue. Positive blood in the stools. He was last admitted to the ICU the end of June with the same complaint. GI bleed. It does not appear that he was scoped on the last admission as he was discharged the day the scope was to happen. Patient presents with BRBPR but has a known history of internal hemorrhoids. He has been scoped in the past and found no active bleeding. He is awake alert and oriented. Hemodynamically stable. Had HD yesterday at his outpatient facility Acute on chronic blood loss anemia: SEVERE * given a dose of desmopressin considering renal disease * Repeat Nuclear scan was positive at the right lower quadrant area. * Patient refused CT angio and categorically states he will not do the procedure even if his life depends on it. * Hgb Appears stable this morning and patient denies bloody stool. * Patient Non Compliant GI Bleed * still with severe anemia. hgb today 5.5. will give 2 more units. Discussed extensively with GI yesterday. NM Bleeding scan ordered. also spoke to NM team to proceed with treatment. GI following, EGD normal, colonoscopy With poor prep Old clot noted throughout the colon to 60 cm, old clot plan for redo Today. counselling provided. avoid all NSAIDs, antiplatelet. NGT placed for prep intake. * NM scan today. * Normal TI with fresh blood noted. Mild sigmoid diverticulosis. Visualized colonic mucosa is normal, with blood and clot scattered throughout, but no bleeding site noted. End Stage renal disease on hemodialysis: nephrology FOLLOWING, Poor compliance addressed. CONTINUE HD. Chronic pain syndrome: Treated with IV morphine, patient will continue to follow with pain specialist outpatient Tobacco dependency: counseled on stopping Stable Systolic Congestive heart failure Hypetensive urgency * add hydralazine prn Sinus Tachycardia * Secondary to severe anemia Dilated Cardiomyopathy LVEF 15-20% Moderate TR Severe Pulmonary HTN High grade proteinuria S/P right BKA. fall precautions. DVT/GI prophylaxis Discussed with GI Poor prognosis. The high probability of a clinically significant, sudden or life threatening deterioration of the [GI, HEMATOLOGY] system(s) required my full and direct attention, intervention and personal management. The aggregate critical care time was [35] minutes. This time is in addition to time spent performing reported procedures but includes the following: [x] Data Review and interpretation [x] Patient assessment and monitoring of vital signs [x] Documentation [x] Medication orders and management 1. Hospitalist Physical - Constitutional Vitals: Temp Pulse Resp BP Pulse Ox 98 F 106 H 20 181/90 99 08/16/17 04:15 08/16/17 08:05 08/16/17 08:05 08/16/17 08:05 08/16/17 08:05 General appearance: Present: no acute distress, well-nourished Results - Labs CBC & Chem 7: 08/16/17 06:25 08/16/17 06:25 Labs: Laboratory Last Values WBC 7.7 K/mm3 (4.5-11.0) 08/14/17 02:48 RBC 2.09 M/mm3 (3.65-5.03) L 08/14/17 02:48 Hgb 7.2 gm/dl (11.8-15.2) L 08/16/17 06:25 Hct 21.6 % (35.5-45.6) L 08/16/17 06:25 MCV 84 fl (84-94) 08/14/17 02:48 MCH 27 pg (28-32) L 08/14/17 02:48 MCHC 32 % (32-34) 08/14/17 02:48 RDW 19.5 % (13.2-15.2) H 08/14/17 02:48 Plt Count 256 K/mm3 (140-440) 08/14/17 02:48 Lymph % (Auto) 9.6 % (13.4-35.0) L 08/10/17 18:13 [place] % (Auto) 5.2 % (0.0-7.3) 08/10/17 18:13 Eos % (Auto) 0.4 % (0.0-4.3) 08/10/17 18:13 Baso % (Auto) 1.3 % (0.0-1.8) 08/10/17 18:13 Lymph # 0.6 K/mm3 (1.2-5.4) L 08/10/17 18:13 [place] # 0.3 K/mm3 (0.0-0.8) 08/10/17 18:13 Eos # 0.0 K/mm3 (0.0-0.4) 08/10/17 18:13 Baso # 0.1 K/mm3 (0.0-0.1) 08/10/17 18:13 Seg Neutrophils % 83.5 % (40.0-70.0) H 08/10/17 18:13 Seg Neutrophils # 5.5 K/mm3 (1.8-7.7) 08/10/17 18:13 PT 15.6 Sec. (12.2-14.9) H 08/11/17 07:35 INR 1.18 (0.87-1.13) H 08/11/17 07:35 APTT 23.0 Sec. (24.2-36.6) L 08/11/17 07:35 Sodium 145 mmol/L (137-145) 08/16/17 06:25 Potassium 4.7 mmol/L (3.6-5.0) 08/16/17 06:25 Chloride 106.6 mmol/L (98-107) 08/16/17 06:25 Carbon Dioxide 25 mmol/L (22-30) 08/16/17 06:25 Anion Gap 18 mmol/L 08/16/17 06:25 BUN 16 mg/dL (9-20) 08/16/17 06:25 Creatinine 3.4 mg/dL (0.8-1.5) H 08/16/17 06:25 Estimated GFR 19 ml/min 08/16/17 06:25 BUN/Creatinine Ratio 4.70 % 08/16/17 06:25 Glucose 73 mg/dL (75-100) L 08/16/17 06:25 Calcium 7.6 mg/dL (8.4-10.2) L 08/16/17 06:25 Total Bilirubin 0.30 mg/dL (0.1-1.2) 08/10/17 18:13 AST 27 units/L (5-40) 08/10/17 18:13 ALT 15 units/L (7-56) 08/10/17 18:13 Alkaline Phosphatase 97 units/L (35-129) 08/10/17 18:13 Total Protein 5.6 g/dL (6.3-8.2) L 08/10/17 18:13 Albumin 2.5 g/dL (3.9-5) L 08/10/17 18:13 Albumin/Globulin Ratio 0.8 % 08/10/17 18:13 Urine Color Yellow (Yellow) 08/11/17 00:34 Urine Turbidity Clear (Clear) 08/11/17 00:34 Urine pH 7.0 (5.0-7.0) 08/11/17 00:34 Ur Specific [place] 1.011 (1.003-1.030) 08/11/17 00:34 Urine Protein 100 mg/dl mg/dL (Negative) 08/11/17 00:34 Urine Glucose (UA) Neg mg/dL (Negative) 08/11/17 00:34 Urine Ketones Neg mg/dL (Negative) 08/11/17 00:34 Urine Blood Neg (Negative) 08/11/17 00:34 Urine Nitrite Neg (Negative) 08/11/17 00:34 Urine Bilirubin Neg (Negative) 08/11/17 00:34 Urine Urobilinogen < 2.0 mg/dL (<2.0) 08/11/17 00:34 Ur Leukocyte Esterase Neg (Negative) 08/11/17 00:34 Urine WBC (Auto) < 1.0 /HPF (0.0-6.0) 08/11/17 00:34 Urine RBC (Auto) 1.0 /HPF (0.0-6.0) 08/11/17 00:34 U Epithel Cells (Auto) < 1.0 /HPF (0-13.0) 08/11/17 00:34 Hyaline Casts 1 /LPF 08/11/17 00:34 Urine Mucus Few /HPF 08/11/17 00:34 Blood Type B POSITIVE 08/14/17 02:55 Antibody Screen Negative 08/14/17 02:55 Crossmatch See Detail 08/14/17 02:55
[2017-08-16] MEDS: PROTONIX PO SCH (09:27)
--- NOTE | 2017-08-16 09:32 | Discharge Summary ---
Providers - Providers Date of Admission: 08/11/17 01:46 Attending physician: CLARICE MENDEZ MD 08/15/17 16:55 Consult to Physician [CONS] Routine Consulting Provider: ALISON DALY Reason For Exam: Small bowel Bleed Primary care physician: FORESTRY AID TECHNICIAN Hospitalization Reason for admission: GI BLEED Condition: Stable Hospital course: Patient is 62 yo man with a history of tobacco dependency, chronic pain syndrome on narcotics daily, CHF with EF 15-20% on 09/2016 Echo, severe pulmonary hypertension, severe TR, DVT, PVD with right bka, htn, hep. c, type 2 dm, disKcitis, aocd, severe protein calorie malnutrition, albumin 2.3, pcn allergy and chronic elevated troponin who presents with altered mental status, fatigue. Positive blood in the stools. He was last admitted to the ICU the end of June with the same complaint. GI bleed. It does not appear that he was scoped on the last admission as he was discharged the day the scope was to happen. Patient presents with BRBPR but has a known history of internal hemorrhoids. He has been scoped in the past and found no active bleeding. He is awake alert and oriented. Hemodynamically stable. Had HD yesterday at his outpatient facility Acute on chronic blood loss anemia: SEVERE * given a dose of desmopressin considering renal disease * Repeat Nuclear scan was positive at the right lower quadrant area. * Patient refused CT angio and categorically states he will not do the procedure even if his life depends on it. * Hgb Appears stable this morning and patient denies bloody stool. * Patient Non Compliant. IT Requires multiple pleading with the pateint for him to consent to life saving proceedure. He has refused the needed angiogram to determine site of the bleed. He claims no new rectal bleed today. GI Bleed * still with severe anemia. hgb today 5.5. will give 2 more units. Discussed extensively with GI yesterday. NM Bleeding scan ordered. also spoke to NM team to proceed with treatment. GI following, EGD normal, colonoscopy With poor prep Old clot noted throughout the colon to 60 cm, old clot plan for redo DONE. counselling provided. avoid all NSAIDs, antiplatelet. NGT placed for prep intake. * Normal TI with fresh blood noted. Mild sigmoid diverticulosis. Visualized colonic mucosa is normal, with blood and clot scattered throughout, but no bleeding site noted. on endoscopy End Stage renal disease on hemodialysis: nephrology FOLLOWING, Poor compliance addressed. CONTINUE HD. Chronic pain syndrome: Treated with IV morphine, patient will continue to follow with pain specialist outpatient Tobacco dependency: counseled on stopping Stable Systolic Congestive heart failure Hypetensive urgency * add hydralazine prn- Restart PO meds. Sinus Tachycardia * Secondary to severe anemia Dilated Cardiomyopathy LVEF 15-20% Moderate TR Severe Pulmonary HTN High grade proteinuria S/P right BKA. fall precautions. pATIENT ADVISED TO RETURN TO HOSPITAL IF REBLEEDS and willing to do needed procedures. Disposition: [id number]/TX-06 HOME UNDER HOME HLTH Time spent for discharge: 35 MINS Core Measure Documentation - Palliative Care Palliative Care/ Comfort Measures: Not Applicable - Core Measures Any of the following diagnoses?: none - VTE Discharge Requirements Deep Vein Thrombosis/Pulmonary Embolism Present on Admission: No Exam - Physical Exam Narrative exam: VITAL SIGNS: Reviewed. GENERAL: The patient appeared well nourished and normally developed. Vital signs as documented. HEAD: No signs of head trauma. EYES: Pupils are equal. Extraocular motions intact. EARS: Hearing grossly intact. MOUTH: Oropharynx is normal. NECK: No adenopathy, no JVD. CHEST: Chest with clear breath sounds bilaterally. No wheezes, rales, or rhonchi. CARDIAC: Regular rate and rhythm. S1 and S2, without murmurs, gallops, or rubs. VASCULAR: No Edema. Peripheral pulses normal and equal in all extremities. ABDOMEN: Soft, without detectable tenderness. No sign of distention. No rebound or guarding, and no masses palpated. Bowel Sounds normal. MUSCULOSKELETAL: Good range of motion of all major joints except noted right BKA. Extremities without clubbing, cyanosis or edema. NEUROLOGIC EXAM: Alert and oriented x 3. No focal sensory or strength deficits. Speech normal. Follows commands. PSYCHIATRIC: Mood normal. SKIN: No rash or lesions. - Constitutional Vitals: Temp Pulse Resp BP Pulse Ox 98 F 106 H 20 181/90 99 08/16/17 04:15 08/16/17 08:05 08/16/17 08:05 08/16/17 08:05 08/16/17 08:05 Plan Activity: advance as tolerated, fall precautions Special Instructions: home health RN Follow up with: PRIMARY CAREMD [Primary Care Provider] - 3-5 Days COREEN STEWART MD [Staff Physician] - 7 Days Prescriptions: Pantoprazole [Protonix TAB] 40 mg PO QDAY #30 tablet
[2017-08-16] MEDS ORDERED: NORVASC PO SCH (10:00)
[2017-08-16] MEDS ORDERED: AMARYL PO SCH (10:00)
[2017-08-16] MEDS ORDERED: NEURONTIN PO SCH ×2 (10:00→14:00)
[2017-08-16] MEDS ORDERED: MS CONTIN ER PO SCH (10:00)
--- NOTE | 2017-08-16 11:51 | Gastroenterology Progress Note ---
Assessment and Plan 1.anemia 2.GI bleed 3.hematochezia -HGB 7.2 today-trending up -continue to monitor H/H and transfuse as needed -hold blood thinning medications -currently hemodynamically stable -no active signs of bleeding overnight or this am per pt -s/p EGD with normal results -s/p colonoscopy yesterday that revealed fresh blood in terminal ileum, blood and clot noted throughout colon (washed away easily),and diverticulosis -Recommended CT angiogram was not performed due to pt refusing -pt is noted to be very non-compliant with recommendations and is refusing any further evaluation of bleeding with a CTA -no further GI recommendations at this time, pt okay to be d/c with f/u in clinic in 1 to 2 weeks -will sign off Subjective Date of service: 08/16/17 Principal diagnosis: anemia, gi bleed Interval history: Patient resting in bed. No acute distress noted. Denies active signs of bleeding overnight or this am. Objective - Constitutional Vitals: Temp Pulse Resp BP Pulse Ox 98 F 106 H 20 181/90 99 08/16/17 04:15 08/16/17 09:29 08/16/17 08:05 08/16/17 08:05 08/16/17 08:05 General appearance: no acute distress - EENT Eyes: PERRL, EOM intact ENT: hearing intact - Respiratory Respiratory: bilateral: CTA - Cardiovascular Rhythm: other (tachycardia) Heart Sounds: Present: S1 & S2 - Extremities Extremity abnormal: other (right BKA) - Gastrointestinal General gastrointestinal: Present: soft, non-tender, non-distended, normal bowel sounds - Integumentary Integumentary: Present: warm, dry - Neurologic Neurological: alert and oriented x3 - Labs CBC & Chem 7: 08/16/17 06:25 08/16/17 06:25 Labs: Laboratory Results - last 24 hr 08/14/17 08/15/17 08/16/17 02:55 16:12 06:25 Hgb 5.4 L* 7.2 L Hct 17.1 L* 21.6 L Sodium Potassium Chloride Carbon Dioxide Anion Gap BUN Creatinine Estimated GFR BUN/Creatinine Ratio Glucose Calcium Blood Type B POSITIVE Antibody Screen Negative Crossmatch See Detail 08/16/17 06:25 Hgb Hct Sodium 145 Potassium 4.7 Chloride 106.6 Carbon Dioxide 25 Anion Gap 18 BUN 16 Creatinine 3.4 H Estimated GFR 19 BUN/Creatinine Ratio 4.70 Glucose 73 L Calcium 7.6 L Blood Type Antibody Screen Crossmatch
[2017-08-16] MEDS ORDERED: NACL 0.9 (PRIMING MACHINE ONLY DIALYSIS) MC ONE (12:27)
--- NOTE | 2017-08-16 13:24 | Progress Note ---
Assessment and Plan Impression: * End stage renal disease on HD * Severe anemia secondary to ABL * GI bleed --EGD: unremarkable --Colonoscopy: Fresh blood in terminal ileum. Blood and clot noted throughout colon, washed away easily. Sigmoid diverticulosis noted * Hypertension * Type II DM Plan: * Hemodialysis today. Continue MWF schedule * UF as tolerated * Transfuse pRBC prn * GI recommendations noted; patient refused CT angiogram * Dose medications for renal function * Epogen for goal Hb 10-12 Subjective Date of service: 08/16/17 Principal diagnosis: anemia, gi bleed Interval history: Patient seen on dialysis. He has no complaints. He denies BRBPR and melena. Objective - Vital Signs Vital signs: Vital Signs - 12hr 08/16/17 08/16/17 08/16/17 02:10 02:15 02:16 Temperature 98.8 F 97.3 F L 97.6 F Pulse Rate 106 H 102 H 104 H Respiratory 18 18 16 Rate Blood Pressure 152/64 148/64 148/62 O2 Sat by Pulse 96 97 96 Oximetry 08/16/17 08/16/17 08/16/17 02:20 02:30 04:15 Temperature 976 F H 97.8 F 98 F Pulse Rate 104 H 104 H 99 H Respiratory 18 20 20 Rate Blood Pressure 152/70 152/68 160/68 O2 Sat by Pulse 96 95 96 Oximetry 08/16/17 08/16/17 08/16/17 08:05 09:29 09:50 Temperature 98.3 F Pulse Rate 106 H 106 H 99 H Respiratory 20 18 Rate Blood Pressure 181/90 174/100 O2 Sat by Pulse 99 Oximetry 08/16/17 08/16/17 08/16/17 10:00 10:15 10:30 Temperature Pulse Rate 104 H 105 H 106 H Respiratory Rate Blood Pressure 180/88 173/87 176/94 O2 Sat by Pulse Oximetry 08/16/17 08/16/17 08/16/17 10:45 11:00 11:15 Temperature Pulse Rate 110 H 113 H 110 H Respiratory Rate Blood Pressure 167/90 181/92 167/90 O2 Sat by Pulse Oximetry 08/16/17 08/16/17 08/16/17 11:30 11:45 12:00 Temperature Pulse Rate 110 H 109 H 115 H Respiratory Rate Blood Pressure 159/89 158/90 137/80 O2 Sat by Pulse Oximetry 08/16/17 08/16/17 08/16/17 12:15 12:30 12:45 Temperature Pulse Rate 123 H 115 H 126 H Respiratory Rate Blood Pressure 123/80 143/78 141/86 O2 Sat by Pulse Oximetry - General Appearance General appearance: well-developed EENT: ATNC Respiratory: Present: Clear to Ascultation Cardiology: regular, S1S2 Gastrointestinal: normal, no tenderness, no distended Integumentary: no rash Musculoskeletal: other (no edema) Psychiatric: cooperative - Lab 08/16/17 06:25 08/16/17 06:25 Most recent lab results Calcium 7.6 mg/dL (8.4-10.2) L 08/16/17 06:25
[2017-08-16 13:44] VITALS: BP 156/78
== END 2017-08-16 15:20 | disposition home or self-care (01) | DRG 377 ==
LOC: ED 18:08 → CC1 08-11 01:46 → 4A 08-11 15:13
PROVIDERS: ADMIT Internal Medicine; ATTEND Internal Medicine
PROC: 30233N1 Transfusion of Nonautologous Red Blood Cells into Peripheral Vein, Percutaneous Approach (ICD-10-PCS; 2017-08-10)
PROC: 5A1D60Z (ICD-10-PCS; 2017-08-10)
PROC: 0DJ08ZZ Inspection of Upper Intestinal Tract, Via Natural or Artificial Opening Endoscopic (ICD-10-PCS; 2017-08-10)
PROC: 0DJD8ZZ Inspection of Lower Intestinal Tract, Via Natural or Artificial Opening Endoscopic (ICD-10-PCS; principal; 2017-08-13)
DX: K92.2 Gastrointestinal hemorrhage, unspecified (principal); N18.6 End stage renal disease; G93.40 Encephalopathy, unspecified; E43 Unspecified severe protein-calorie malnutrition; D62 Acute posthemorrhagic anemia; I13.2 Hypertensive heart and chronic kidney disease with heart failure and with stage 5 chronic kidney disease, or end stage renal disease; I50.20 Unspecified systolic (congestive) heart failure; N17.9 Acute kidney failure, unspecified; I42.0 Dilated cardiomyopathy; Z88.0 Allergy status to penicillin; Z88.8 Allergy status to other drugs, medicaments and biological substances; Z89.511 Acquired absence of right leg below knee; E11.22 Type 2 diabetes mellitus with diabetic chronic kidney disease; Z99.2 Dependence on renal dialysis; F17.200 Nicotine dependence, unspecified, uncomplicated; I27.2 Other secondary pulmonary hypertension; E11.51 Type 2 diabetes mellitus with diabetic peripheral angiopathy without gangrene; Z82.49 Family history of ischemic heart disease and other diseases of the circulatory system; Z90.49 Acquired absence of other specified parts of digestive tract; K64.8 Other hemorrhoids; G89.4 Chronic pain syndrome; B19.20 Unspecified viral hepatitis C without hepatic coma; I16.0 Hypertensive urgency; Z53.29 Procedure and treatment not carried out because of patient's decision for other reasons; Z53.8 Procedure and treatment not carried out for other reasons; K57.91 Diverticulosis of intestine, part unspecified, without perforation or abscess with bleeding
CPT/HCPCS: 36415; 71010; 78278; 80048; 80053; 81001; 82271; 85014; 85018; 85025; 85027; 85610; 85730; 86850; 86900; 86901; 86920; 87086; 93005; 93010; 96361; 96365; 96366; 96375; A9560; J1642; J2270; J2597; J2704; J7030; J7040; P9016

== ENCOUNTER 2018-04-16 12:02 | Day surgery (SDC) | payer MEDICARE ==
[2018-04-16 12:35] VITALS: BP 177/90
== END 2018-04-16 13:00 | disposition home or self-care (01) ==
LOC: CATH 12:02 → CATHLABREC 12:02
PROVIDERS: ATTEND Radiology Diagnostic Radiology
DX: T82.898A Other specified complication of vascular prosthetic devices, implants and grafts, initial encounter (principal); Y83.2 Surgical operation with anastomosis, bypass or graft as the cause of abnormal reaction of the patient, or of later complication, without mention of misadventure at the time of the procedure; Z53.8 Procedure and treatment not carried out for other reasons

== ENCOUNTER 2018-04-17 13:48 | Day surgery (SDC) | payer MEDICARE ==
[2018-04-17] MEDS ORDERED: DILAUDID IV PRN (15:32)
[2018-04-17] MEDS ORDERED: ANGIOMAX IV ONE ×2 (15:40→16:30)
[2018-04-17] MEDS ORDERED: DILAUDID ONE (15:40)
[2018-04-17] MEDS ORDERED: SUBLIMAZE ONE (15:40)
[2018-04-17] MEDS ORDERED: WATER FOR INJ (PF) 10 ML ONE (15:40)
[2018-04-17] MEDS ORDERED: XYLOCAINE 1%/ EPI 1:100,000 INFILTRATI ONE ×2 (15:40→16:30)
[2018-04-17] MEDS ORDERED: VERSED ONE (15:40)
[2018-04-17] MEDS ORDERED: NACL 0.9% 100 ML ONE (15:41)
[2018-04-17] MEDS ORDERED: NACL 0.9% 500 ML 500 ML ONE (15:41)
[2018-04-17] MEDS ORDERED: VANCOMYCIN PHARMACY TO DOSE IV SCH (16:00)
[2018-04-17] MEDS ORDERED: VANCOMYCIN/NS 1 GM/250 ML 1 GM/250 ML BAG IV SCH (16:00)
[2018-04-17] MEDS ORDERED: NACL 0.9% 500 ML IV ONE (16:20)
[2018-04-17] MEDS: VERSED IV ONE ×2 (16:27→16:35)
[2018-04-17] MEDS ORDERED: SUBLIMAZE IV ONE (16:27)
[2018-04-17] MEDS ORDERED: CATHFLO ONE (16:36)
[2018-04-17] MEDS ORDERED: CATHFLO IV ONE (16:40)
--- NOTE | 2018-04-17 16:55 | Short Stay Summary ---
Short Stay Documentation Date of service: 04/17/18 Narrative H&P: 62 year old male with ESRD with AVF malfunction who needs dialysis access. - Allergies and Medications Current Medications: Allergies Penicillins Allergy (Verified 08/10/17 18:43) Itching heparin Adverse Reaction (Verified 08/10/17 18:43) THINS BLOOD PATIENT STATES IT CAUSED HIS LEG TO NOT HEAL WELL AND MADE HIM ANEMIC Home Medications Medication Instructions Recorded Confirmed Last Taken Type Lisinopril 10 mg PO QDAY 04/03/17 08/10/17 07/22/17 History Gabapentin [Neurontin] 300 mg PO Q8HR #90 capsule 04/11/17 08/10/17 07/22/17 Rx amLODIPine [Norvasc] 10 mg PO QDAY #30 tablet 04/11/17 08/10/17 07/22/17 Rx Glimepiride [Amaryl] 4 mg PO DAILY 07/23/17 08/10/17 07/22/17 History Morphine Sulfate [Morphine Sulfate 15 mg PO Q12H 08/10/17 08/10/17 Unknown History ER] Pantoprazole [Protonix TAB] 40 mg PO QDAY #30 tablet 08/16/17 Unknown Rx Active Medications Hydromorphone HCl (Dilaudid) 0.5 mg IV Q15M PRN PRN Reason: Pain , Severe (7-10) Last Admin: 04/17/18 15:49 Dose: 0.5 mg Vancomycin HCl (Vancomycin/Ns 1 Gm/250 Ml) 1 gm in 250 mls @ 167.007 mls/hr IV PREOP ALEX; Protocol Last Admin: 04/17/18 16:20 Dose: 250 mls - Physical exam General appearance: no acute distress Lungs: Normal air movement Gastrointestinal: normal Extremities: normal temperature, normal color, abnormal (normal thrill at AVF site) - Brief post op/procedure progress note Date of procedure: 04/17/18 Pre-op diagnosis: esrd with AVF malfunction Post-op diagnosis: same Procedure: permcath placement Anesthesia: local (w/ conscious sedation) Surgeon: ALISON VALENCIA Estimated blood loss: minimal Condition: stable - Hospital course Hospital course: Ready for discharge. FU in [address] Valencia. - Disposition Condition at discharge: Stable Disposition: DC- TO HOME OR SELFCARE - Discharge Diagnoses (1) Malfunction of arteriovenous dialysis fistula Status: Acute Short Stay Discharge Plan Activity: advance as tolerated Weight Bearing Status: Weight Bear as Tolerated Diet: renal Wound: keep clean and dry, other (followup with Dr. Valencia in 2 weeks with [facility]) Follow up with: PRIMARY CARE, [Primary Care Provider] - 7 Days Forms: AMA Form
--- NOTE | 2018-04-17 17:21 | Operative Report ---
Operative Report Operative Report: EXAM: 1. Ultrasound-guided puncture of the right internal jugular vein 2. Fluoroscopic-guided placement of a right internal jugular tunneled cuffed hemodialysis catheter. DATE: 04/17/18 INDICATION: End-stage renal disease with AV fistula malfunction MEDICATIONS: Please see nursing report for full details. DEVICES: 23 cm tip to cuff 15 Fr dual lumen hemodialysis catheter ZOO KEEPER: ALISON VALENCIA MD CONTRAST: None PROCEDURE: PLEASE NOTE PATIENT HAS ALLERGY TO HEPARIN. TPA WAS USED TO LOCK THE CATHETERS. The risks, benefits, and alternatives were discussed and informed consent was obtained. The patient was transported to the angiography suite in satisfactory/ stable condition and was transported onto the angiography table. The patient's right internal jugular vein was assessed with ultrasound and determined to be patent prior to procedure. The patient was prepped and draped in a sterile fashion. The puncture site was anesthetized. Under sonographic guidance, the right internal jugular vein was punctured with a 21-gauge micropuncture needle and a 0.018 inch wire was advanced into the inferior vena cava. The micropuncture needle was exchanged for a transitional dilator and the wire was retracted into the right atrium to sammy intravascular distance. The wire and inner dilator were removed. 0.035 inch wire was advanced through the transitional dilator into the inferior vena cava. A suitable exit site was identified on the patient's chest inferior and lateral to the venotomy. The site was anesthetized with local anesthetic and the track was anesthetized. Dermatotomy was made. The PermCath was attached to the tunneling device and tunneled between the dermatotomy to the venotomy. Over the 0.035 inch wire, serial dilatation was performed with ultimate placement of a peel-away sheath. The catheter was advanced through the peel- away sheath after the wire was removed and positioned centrally under fluoroscopic guidance. The peel-away sheath was removed. 4-0 Vicryl suture was used to close the venotomy and Dermabond was then applied. 2-0 Ethilon suture was used to secure the catheter at the dermatotomy. The catheter was charged with 2 mg tPA per lumen due to heparin allergy. Sterile dressing and biopatch applied. The patient was transferred from the angiography suite back to the floor in stable condition. FINDINGS: 1. Excellent flow was obtained through the dialysis catheter with 20 mL syringes. 2. The catheter tip is in the right atrium. IMPRESSION: 1. Successful ultrasound and fluoroscopically guided placement of a right internal jugular tunneled cuffed hemodialysis catheter.
[2018-04-17 17:52] VITALS: BP 177/89
== END 2018-04-17 18:18 | disposition home or self-care (01) ==
LOC: CATHLABREC 13:48
PROVIDERS: ATTEND Surgery Vascular Surgery
DX: T82.898A Other specified complication of vascular prosthetic devices, implants and grafts, initial encounter (principal); N18.6 End stage renal disease; Z88.0 Allergy status to penicillin; Z88.8 Allergy status to other drugs, medicaments and biological substances; Y83.2 Surgical operation with anastomosis, bypass or graft as the cause of abnormal reaction of the patient, or of later complication, without mention of misadventure at the time of the procedure
CPT/HCPCS: 36415; 36558; 76937; 77001; 84132; 96374; 99156; C1750; J0583; J1170; J2250; J2997; J3010; J3370; J7040

== ENCOUNTER 2018-07-14 03:45 | Emergency (ER) | payer MEDICARE ==
[~2018-07-14 03:45] MED LIST: ADRENALIN ONE; CALCIUM CHLORIDE IV ONE; D50W (25GM) Syringe IV ONE; SODIUM BICARBONATE IV ONE
--- NOTE | 2018-07-14 04:13 | Emergency Department Report ---
HPI - General Time Seen by Provider: 07/14/18 04:07 - HPI HPI: Room 23 The patient is a 63-year-old male presenting with chief complaint cardiac arrest. EMS reports they were called out to the patient's residence earlier in the night for shortness of breath. The patient was treated on scene. Approximately 03:03 they received a call for unresponsive person. EMS arrived on scene at 03:12 to find the patient unresponsive and in asystole. The patient was intubated by EMS administered 1 mg of epinephrine down the ET tube as they were unable to establish IV access. Upon arrival to the ED IV access was obtained and ACLS protocols were continued. There was no return of spontaneous circulation Location: Cardiovascular system Duration: [See above] Quality: Asystole Severity: Severe Modifying factors: [see above] Context: [see above] Mode of transportation: [not driving] ED Past Medical Hx - Past Medical History Hx Hypertension: Yes Hx Diabetes: Yes Hx Renal Disease: Yes Additional medical history: osteomyelitis, ANEMIA. Diabetic Neuropathy.Renal failure, Dialysis . 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 Port for dialysis implanted in left chest 1 month back, dialysis port in RT chest - Family History Family history: no significant - Social History Smoking Status: Unknown if ever smoked - Medications Home Medications: Home Medications Medication Instructions Recorded Confirmed Last Taken Type Lisinopril 10 mg PO QDAY 04/03/17 08/10/17 07/22/17 History Gabapentin [Neurontin] 300 mg PO Q8HR #90 capsule 04/11/17 08/10/17 07/22/17 Rx amLODIPine [Norvasc] 10 mg PO QDAY #30 tablet 04/11/17 08/10/17 07/22/17 Rx Glimepiride [Amaryl] 4 mg PO DAILY 07/23/17 08/10/17 07/22/17 History Morphine Sulfate [Morphine Sulfate 15 mg PO Q12H 08/10/17 08/10/17 Unknown History ER] Pantoprazole [Protonix TAB] 40 mg PO QDAY #30 tablet 08/16/17 Unknown Rx ED Review of Systems ROS: Stated complaint: CARDIAC ARREST Other details as noted in HPI Comment: Unobtainable due to pts medical conditions Physical Exam - Physical Exam Physical Exam: GENERAL: The patient is well-developed well-nourished male lying on stretcher being bagged via EMS and received chest compressions. ET tube in place HEENT: Normocephalic. Atraumatic. NECK: Trachea midline CHEST/LUNGS: No spontaneous respirations. Breath sounds equal bilaterally with bagging HEART/CARDIOVASCULAR: No heart sounds. Asystole on monitor ABDOMEN: Abdomen is soft, nontender. Patient has normal bowel sounds. There is no abdominal distention. SKIN: There is no diaphoresis. NEURO: GCS 3T MUSCULOSKELETAL: Right BKA. There is no evidence of acute injury. ED Medical Decision Making - Differential Diagnosis cardiac arrest Critical care attestation.: If time is entered above; I have spent that time in minutes in the direct care of this critically ill patient, excluding procedure time. ED Disposition Clinical Impression: Cardiac arrest Disposition: DC-20 Is pt being admited?: No Does the pt Need Aspirin: No Condition: Poor Referrals: PRIMARY CARE, [Primary Care Provider] - 3-5 Days Time of Disposition: 04:08 (patient )
== END 2018-07-14 05:00 ==
LOC: ED 03:45
DX: I46.9 Cardiac arrest, cause unspecified (principal); I10 Essential (primary) hypertension; D64.9 Anemia, unspecified; E11.40 Type 2 diabetes mellitus with diabetic neuropathy, unspecified; Z79.899 Other long term (current) drug therapy
CPT/HCPCS: 82962; 92950; 99285; J0171